=== PATIENT | male | born 1950 | race Caucasian/White ===

== ENCOUNTER → 2017-12-16 15:06 | Outpatient (BNVA) | payer MEDICARE, SELFPAY | PROVIDERS: Visit Provider Internal Medicine Cardiovascular Disease | DX: E78.2 Mixed hyperlipidemia (principal); I10 Essential (primary) hypertension; E66.09 Other obesity due to excess calories; R55 Syncope and collapse | CPT/HCPCS: 99204; 99215 ==

== ENCOUNTER 2017-12-24 01:29 | Outpatient (CLI) | payer MEDICARE, MEDICAID, SELFPAY ==
--- NOTE | 2017-12-24 10:08 | MERGE_ITS ---
*[facility]* *[facility]* [address] [place] [address] Date of study: 12/24/2017 Transthoracic Echocardiography M-mode, complete 2D, complete spectral Doppler, and color Doppler *STUDY CONCLUSIONS* Summary: 1. Left ventricle: The cavity size was normal. Systolic function was hyperdynamic. The estimated ejection fraction was 65-70%. Diastolic parameters were normal. There was no evidence of elevated ventricular filling pressure by Doppler parameters. 2. Mitral valve: There was mild to moderate regurgitation. 3. Right ventricle: The cavity size was normal. Wall thickness was normal. Systolic function was normal. 4. Atrial septum: No defect or patent foramen ovale was identified. 5. Pulmonary arteries: Pulmonary systolic pressure was in the range of 25mm Hg to 35mm Hg. 6. Inferior vena cava: The vessel was normal in size. The respirophasic diameter changes were in the normal range (greater than or equal to 50%), consistent with normal central venous pressure. *PATIENT PRESENTATION* Height: 160cm ((63in) ) S/D Pressure: 150 / 90 Weight: 107.5kg ((236.5lb) ) BSA: 2.24m^2 Test start time: 10:20 AM. Test stop time: 11:11 AM. ORDERING Nenita Wright REFERRING Nenita Wright PERFORMING Unknown PERFORMING [facility] MANAGER PROCESS EXCELLENCE Verenice Rowland *PROCEDURE DATA* Procedure information: This study was interpreted by [facility]. Pertinent images and digital data are archived for permanent storage and are available for subsequent review. No prior study was available for comparison. Study status: Routine. Transthoracic echocardiography. M-mode, complete 2D, complete spectral Doppler, and color Doppler. A Transthoracic Echocardiogram was performed. Scanning was performed from the parasternal, apical, subcostal, and suprasternal notch acoustic windows. Images were obtained using an [employer] sc 2000 cardiac ultrasound machine. Image quality was adequate. Study completion: The patient tolerated the procedure well. History: PMH: Near syncope *CARDIAC ANATOMY* Left ventricle: The cavity size was normal. Systolic function was hyperdynamic. The estimated ejection fraction was 65-70%. The tissue Doppler parameters were normal. Diastolic parameters were normal. There was no evidence of elevated ventricular filling pressure by Doppler parameters. Aortic valve: Trileaflet. Doppler: There was no stenosis. There was no regurgitation. VTI ratio of LVOT to aortic valve: 0.97. Valve area (VTI): 3.5cm^2. Indexed valve area (VTI): 1.6cm^2/m^2. Peak velocity ratio of LVOT to aortic valve: 0.94. Valve area (Vmax): 3.4cm^2. Indexed valve area (Vmax): 1.5cm^2/m^2. Mean velocity ratio of LVOT to aortic valve: 0.82. Valve area (Vmean): 2.9cm^2. Indexed valve area (Vmean): 1.3cm^2/m^2. Mean gradient (S): 3.4mm Hg. Peak gradient (S): 6.3mm Hg. Aorta: Aortic root: The aortic root was normal in size. Ascending aorta: The ascending aorta was normal in size. Mitral valve: Doppler: There was no evidence for stenosis. There was mild to moderate regurgitation. Valve area by pressure half-time: 3cm^2. Indexed valve area by pressure half-time: 1.3cm^2/m^2. Peak gradient (D): 2.8mm Hg. Left atrium: The atrium was normal in size. Atrial septum: No defect or patent foramen ovale was identified. Right ventricle: The cavity size was normal. Wall thickness was normal. Systolic function was normal. Pulmonic valve: Doppler: There was no evidence for stenosis. There was no significant regurgitation. Peak gradient (S): 3.3mm Hg. Tricuspid valve: Doppler: There was mild regurgitation. Pulmonary artery: Poorly visualized. Pulmonary systolic pressure was in the range of 25mm Hg to 35mm Hg. Right atrium: The atrium was normal in size. Pericardium: There was no pericardial effusion. Systemic veins: Inferior vena cava: The vessel was normal in size. The respirophasic diameter changes were in the normal range (greater than or equal to 50%), consistent with normal central venous pressure. Measurements Left ventricle Value Reference LV ID, ED, PLAX 4.7 cm 3.5 - 6.0 LV ID, ES, PLAX 3.2 cm 2.1 - 4.0 LV PW thickness, ED, PLAX 1.0 cm LV end-diastolic volume, 1-p A2C 87 ml LV ejection fraction, 1-p A2C 51 % LV end-diastolic volume, 1-p A4C 72 ml LV ejection fraction, 1-p A4C 59 % LV e', lateral 0.089 m/sec LV E/e', lateral 9 LV e', medial 0.07 m/sec LV E/e', medial 12 LV e', average 0.08 m/sec LV E/e', average 11 Ventricular septum Value Reference IVS thickness, ED, PLAX 1.0 cm LVOT Value Reference LVOT ID, A-P 2.1 cm LVOT area 3.6 cm^2 LVOT peak velocity, S 1.18 m/sec LVOT mean velocity, S 0.71 m/sec LVOT VTI, S 26.2 cm LVOT peak gradient, S 5.5 mm Hg LVOT mean gradient, S 2.5 mm Hg Stroke volume (SV), LVOT DP 94 ml Stroke index (SV/bsa), LVOT DP 42 ml/m^2 Aortic valve Value Reference Aortic valve peak velocity, S 1.3 m/sec Aortic valve mean velocity, S 0.87 m/sec Aortic valve VTI, S 27.0 cm Aortic mean gradient, S 3.4 mm Hg Aortic peak gradient, S 6.3 mm Hg VTI ratio, LVOT/AV 0.97 Aortic valve area, VTI 3.5 cm^2 Velocity ratio, peak, LVOT/AV 0.94 Aortic valve area, peak velocity 3.4 cm^2 Velocity ratio, mean, LVOT/AV 0.82 Aortic valve area, mean velocity 2.9 cm^2 Aortic valve area/bsa, mean velocity 1.3 cm^2/m^2 Aorta Value Reference Aortic root ID, ED 3.4 cm Ascending aorta ID, A-P, S 3.6 cm Left atrium Value Reference LA ID, A-P, ES 3.7 cm LA ID/bsa, A-P 1.7 cm/m^2 <=2.2 LA area, ES, A4C 22.8 cm^2 8.8 - 23.4 LA area, ES, A2C 18 cm^2 LA volume/bsa, S 31 ml/m^2 LA volume, ES, 2-p 60 ml LA volume/bsa, ES, 2-p 27 ml/m^2 LA/aortic root ratio 1.11 Mitral valve Value Reference Mitral E-wave peak velocity 0.84 m/sec Mitral A-wave peak velocity 0.85 m/sec Mitral deceleration time (H) 257 ms 150 - 230 Mitral pressure half-time 75 ms Mitral peak gradient, D 2.8 mm Hg Mitral E/A ratio, peak 1 Mitral valve area, PHT, DP 3 cm^2 Tricuspid valve Value Reference Tricuspid regurg peak velocity 2.5 m/sec Tricuspid peak RV-RA gradient 25.5 mm Hg Right atrium Value Reference RA area, ES, A4C (H) 19.7 cm^2 8.3 - 19.5 Pulmonic valve Value Reference Pulmonic peak gradient, S 3.3 mm Hg Legend: (L) and (H) neena values outside specified reference range. I have personally reviewed the images and have reviewed and edited the reported findings. Electronically signed by Cas Hein MD 12/24/2017 18:29
== END 2017-12-24 01:49 ==
PROVIDERS: PCP Family Medicine; Visit Provider Internal Medicine Cardiovascular Disease
DX: R55 Syncope and collapse (principal); I34.0 Nonrheumatic mitral (valve) insufficiency
CPT/HCPCS: 93270; 93306

== ENCOUNTER 2017-12-24 11:18 | Outpatient (CLI) | payer MEDICARE, MEDICAID, SELFPAY ==
--- NOTE | 2018-02-02 12:35 | CER_ITS ---
PREVENTICE REPORT DATE OF DICTATION February 02, 2018 STUDY INDICATION Syncope. REQUESTING PROVIDER Nenita Wright M.D. FINDINGS The patient was monitored for 30 days. COMMENTS The baseline rhythm was sinus rhythm. The average heart rate was 83 beats per minute. The maximal heart rate was 105 beats per minute. There was no bradycardia. There were no pauses greater than 3 seconds. There was no higher degree heart block. There was no atrial fibrillation. There was no ventricular tachycardia. There were 6 patient events. 2 events correlated with PVCs. All other events did not correlate with arrhythmias. FINAL INTERPRETATION No significant tachy or nereyda arrhythmias. Varun Lal M.D. MJ/jarrell T - 02/02/2018
== END 2017-12-24 11:38 ==
PROVIDERS: PCP Family Medicine; Visit Provider Internal Medicine Cardiovascular Disease
DX: R55 Syncope and collapse (principal)
CPT/HCPCS: 93270

== ENCOUNTER 2018-02-02 08:30 | Outpatient (CLI) | payer MEDICARE, MEDICAID, SELFPAY | END 2018-02-02 08:50 | PROVIDERS: PCP Family Medicine; Referring Provider Internal Medicine Cardiovascular Disease; Visit Provider Student in an Organized Health Care Education/Training Program | DX: R55 Syncope and collapse (principal) | CPT/HCPCS: 93228 ==

== ENCOUNTER 2018-08-17 14:36 | Outpatient (REF) | payer MEDICARE, SELFPAY ==
[2018-08-17 22:14] LABS: ALT 45 U/L (12-78); AST 23 U/L (15-37); Abs Immature Grans 0.03 k/cumm (0.0-0.09); Absolute Basophil Count 0.02 k/cumm (0.0-0.2); Absolute Eosinophil Count 0.15 k/cumm (0.0-0.7); Absolute Lymphocyte Count 2.36 k/cumm (1.2-3.4); Absolute Monocyte Count 0.95 k/cumm (0.11-0.7); Absolute Neutrophil Count 6.16 k/cumm (1.2-6.7); Alkaline Phosphatase 124 U/L (46-116); Anion Gap 11.8 mmol/L (3-11); BUN 26 mg/dL (7-18); Basophils % 0.2; Bilirubin, Total 0.3 mg/dL (0.2-1.0); CO2 25.2 mmol/L (21.0-32.0); CREATININE 1.67 mg/dL (0.70-1.30); Calcium 9.1 mg/dL (8.5-10.1); Chloride 99 mmol/L (98-107); Eosinophils % 1.6; Estimated GFR 41.24 (mL/min/1.73m2); Glucose 87 mg/dL (70-100); HCT 41.2 % (40.0-50.0); Immature Grans % 0.3; Lymphocytes % 24.4; Mean Corpuscular Hemoglobin 31.5 pg (27.0-33.0); Mean Corpuscular Volume 92.6 fL (80-95); Mean Platelet Volume 13.1 fL (8.0-11.0); Monocytes % 9.8; Neutrophils % 63.7; Platelet Count 186 x1000/uL (130-400); Potassium 4.4 mmol/L (3.5-5.1); RBC 4.45 m/cumm (4.50-6.00); RBC Distribution Width 14.5 % (11.8-14.1); Sodium 136 mmol/L (136-145); Total Protein 7.4 g/dL (6.4-8.2); White Blood Cell Count 9.67 k/cumm (4.4-10.8)
[2018-08-17 22:57] LABS: Hemoglobin A1C 6.5 % (4.5-6.2)
[2018-08-19 12:27] LABS: Lyme Ab w Rflx to Lyme Confirm Negative
[2018-08-19 20:02] LABS: Anaplasma phagocytophilum Negative (Negative); B. miyamotoi PCR Negative (Negative); Babesia divergens/MO-1 Negative (Negative); Babesia duncani Negative (Negative); Babesia microti Negative (Negative); Ehrlichia chaffeensis Negative (Negative); Ehrlichia ewingii/canis Negative (Negative); Ehrlichia muris eauclairensis Negative (Negative)
== END 2018-08-17 14:56 ==
LOC: NCHCN 14:36
PROVIDERS: PCP Family Medicine; Visit Provider Physician Assistant Medical
DX: E11.9 Type 2 diabetes mellitus without complications (principal); I95.9 Hypotension, unspecified
CPT/HCPCS: 80053; 83036; 85025; 86618; 87798

== ENCOUNTER 2018-12-13 12:43 | Outpatient (REF) | payer MEDICARE, SELFPAY ==
[2018-12-13 21:21] LABS: ALT 37 U/L (16-63); AST 20 U/L (15-37); Albumin 3.9 g/dL (3.4-5.0); Alkaline Phosphatase 110 U/L (46-116); Anion Gap 13.3 mmol/L (3-11); BUN 16 mg/dL (7-18); Bilirubin, Total 0.2 mg/dL (0.2-1.0); C-Reactive Protein 0.13 mg/dL (0.0-0.3); CO2 23.7 mmol/L (21.0-32.0); CREATININE 0.95 mg/dL (0.70-1.30); Calcium 8.8 mg/dL (8.5-10.1); Chloride 103 mmol/L (98-107); Glucose 100 mg/dL (70-100); Potassium 4.3 mmol/L (3.5-5.1); Sodium 140 mmol/L (136-145); Total Protein 7.7 g/dL (6.4-8.2)
[2018-12-13 21:31] LABS: HCT 43.9 % (40.0-50.0); HGB 14.6 g/dL (13.5-17.5); Mean Corp. HGB Concentration 33.3 g/dL (32.0-36.0); Mean Corpuscular Hemoglobin 31.2 pg (27.0-33.0); Mean Corpuscular Volume 93.8 fL (80-95); Mean Platelet Volume 12.3 fL (8.0-11.0); Platelet Count 212 x1000/uL (130-400); RBC 4.68 m/cumm (4.50-6.00); RBC Distribution Width 14.4 % (11.8-14.1); White Blood Cell Count 8.37 k/cumm (4.4-10.8)
[2018-12-13 22:04] LABS: ESR 22 mm/hr (1-20)
== END 2018-12-13 13:03 ==
LOC: NCHCN 12:43
PROVIDERS: PCP Family Medicine; Visit Provider Family Medicine
DX: E11.9 Type 2 diabetes mellitus without complications (principal); M06.9 Rheumatoid arthritis, unspecified; I10 Essential (primary) hypertension; E78.5 Hyperlipidemia, unspecified
CPT/HCPCS: 80053; 85027; 85652; 83036; 86140

== ENCOUNTER 2018-12-23 01:41 | Outpatient (CLI) | payer MEDICARE, SELFPAY ==
--- NOTE | 2018-12-23 14:03 | DI.CTLCSR_ITS ---
EXAM: CT CHEST LUNG CANCER SCREEN CT CHEST LUNG CANCER SCREEN CLINICAL HISTORY: . PERSONAL H/O SMOKING, Z87.891 TECHNIQUE: Low-dose noncontrast COMPARISON: No exams were available for comparison FINDINGS: Tracheobronchial tree: Patent where visualized. Mediastinum and Bre: No dominant adenopathy or fluid collection. Pulmonary parenchyma: No consolidation or dominant measurable mass. . Mild to moderate emphysematous changes at the upper lobes. Lung Nodules: None. Pleura: No effusion or pneumothorax. Heart/Aorta: Thoracic aorta non-dilated.Mild aortic calcifications. The heart is not dilated. . Alem nary artery calcifications. Upper abdomen: Unremarkable. IMPRESSION: Normal low dose CT lung screening Lung-RADS Category: 1 - Negative (See reference table below.) Lung-RADS 1.0 CATEGORIES: Category 0 - Prior chest CT exam(s) being located for comparison. Category 1 - Annual screening in 12 months. No nodules or definitely benign nodules. Category 2 - Annual screening in 12 months. Benign appearance. Nodules with low likelihood of becomin g active cancer. Category 3 - 6-month follow-up. Probably benign. Short-term follow-up suggested. Nodules with low lik elihood of becoming active cancer. Category 4A - 3-month follow-up and CT/PET if >8 mm in size. Suspicious finding. Findings which requi re additional testing. Category 4B - Findings which require additional testing and tissue sampling. Suspicious finding. C Added to Any of the Above - History of prior lung cancer screening. S Added to Any of the Above - Significant unexpected other finding. DATA REPOSITORY: All CT scans at this facility are submitted to the National Radiology Data Registry (NRDR) Dose Index Registry (DIR) with the [employer] (ACR). RADIATION OPTIMIZATION: All CT scans at this facility use at least one of these dose optimization te chniques: automated exposure control; mA and/or kV adjustment per patient size (includes targeted exa ms where dose is matched to clinical indication); or iterative reconstruction.
== END 2018-12-23 02:01 ==
PROVIDERS: PCP Family Medicine; Visit Provider Family Medicine
DX: Z12.2 Encounter for screening for malignant neoplasm of respiratory organs (principal); Z87.891 Personal history of nicotine dependence; J43.9 Emphysema, unspecified; I70.0 Atherosclerosis of aorta; I25.10 Atherosclerotic heart disease of native coronary artery without angina pectoris
CPT/HCPCS: G0297

== ENCOUNTER 2019-06-23 13:50 | Outpatient (REF) | payer MEDICARE, SELFPAY ==
[2019-06-23 19:27] LABS: Abs Immature Grans 0.02 k/cumm (0.0-0.09); Absolute Basophil Count 0.01 k/cumm (0.0-0.2); Absolute Eosinophil Count 0.22 k/cumm (0.0-0.7); Absolute Lymphocyte Count 2.65 k/cumm (1.2-3.4); Absolute Monocyte Count 0.81 k/cumm (0.11-0.7); Basophils % 0.1; Eosinophils % 2.3; HCT 40.5 % (40.0-50.0); HGB 13.2 g/dL (13.5-17.5); Immature Grans % 0.2 %; Lymphocytes % 28.2; Mean Corp. HGB Concentration 32.6 g/dL (32.0-36.0); Mean Corpuscular Hemoglobin 30.8 pg (27.0-33.0); Mean Corpuscular Volume 94.4 fL (80-95); Mean Platelet Volume 12.5 fL (8.0-11.0); Monocytes % 8.6; Neutrophils % 60.6; Platelet Count 183 x1000/uL (130-400); RBC 4.29 m/cumm (4.50-6.00); White Blood Cell Count 9.41 k/cumm (4.4-10.8)
[2019-06-23 20:05] LABS: ESR 27 mm/hr (1-20)
[2019-06-23 20:19] LABS: ALT 46 U/L (16-63); AST 34 U/L (15-37); Alkaline Phosphatase 147 U/L (46-116); Anion Gap 8.8 mmol/L (3-11); BUN 22 mg/dL (7-18); Bilirubin, Total 0.3 mg/dL (0.2-1.0); CO2 30.2 mmol/L (21.0-32.0); Calcium 9.3 mg/dL (8.5-10.1); Chloride 99 mmol/L (98-107); Glucose 122 mg/dL (74-106); Sodium 138 mmol/L (136-145); Total Protein 8.1 g/dL (6.4-8.2)
[2019-06-23 21:20] LABS: C-Reactive Protein 1.05 mg/dL (0.0-0.3)
[2019-06-24 12:37] LABS: Hemoglobin A1C 6.3 % (3.8-5.6)
[2019-06-24 12:38] LABS: Calculated LDL 103 mg/dL (<100); Cholesterol 175 mg/dL (<200); HDL Cholesterol 40 mg/dL (40-60); Triglyceride 160 mg/dL (<150)
[2019-06-24 21:32] LABS: Rheumatoid Factor <8.6 IU/mL (<12.0)
[2019-06-26 10:11] LABS: Cyclic Citrullinated Peptide <2.5 U/mL (<5.0)
[2019-06-26 11:06] LABS: HBs Antibody, Quant <3.1 mIU/mL (See Note); Hepatitis B Surface Ab Negative (See Note)
[2019-06-26 11:10] LABS: Hepatitis B Surface Ag Negative (Negative)
[2019-06-26 11:56] LABS: HIV-1/2 Ag & Ab Screen Negative (Negative)
[2019-06-26 11:57] LABS: Hepatitis C Ab w Rflx HCV PCR Negative (Negative)
[2019-06-26 12:18] LABS: Hep B Core Antibody Negative (Negative)
[2019-06-26 12:44] LABS: ANA Interpretation Negative (Negative)
[2019-06-27 15:36] LABS: HLA-B27 Result Negative
[2019-06-28 12:17] LABS: RNP Ab, IgG 6.9 Units (<20.0); SS-A Antibody 1.4 Units (<20.0); SS-B (La) Ab, IgG 2.7 Units (<20.0); Sm (Smith) Ab, IgG 10.7 Units (<20.0)
== END 2019-06-23 14:10 ==
LOC: NCHCN 13:50
PROVIDERS: Internal Medicine; PCP Family Medicine; Visit Provider Family Medicine
DX: H20.9 Unspecified iridocyclitis (principal); M06.9 Rheumatoid arthritis, unspecified; E78.5 Hyperlipidemia, unspecified; R73.09 Other abnormal glucose; I10 Essential (primary) hypertension; Z79.899 Other long term (current) drug therapy; Z51.81 Encounter for therapeutic drug level monitoring; Z52.008 Unspecified donor, other blood
CPT/HCPCS: 80053; 80061; 85652; 86200; 86704; 86706; 86803; 86812; 87340; 87389; 83036; 85025; 86038; 86140; 86235; 86431

== ENCOUNTER 2020-01-16 17:50 | Outpatient (REF) | payer MEDICARE, SELFPAY ==
[2020-01-16 19:47] LABS: HCT 43.2 % (40.0-50.0); MCH 30.4 pg (27.0-33.0); MCHC 32.4 % (32.0-36.0); MCV 93.9 fL (80-95); MPV 12.4 fL (8.0-11.0); Platelet Count 224 10^3/uL (130-400); RDW 13.6 % (11.8-14.1); RDW-SD 47.4 fL; WBC 9.89 10^3/uL (4.4-10.8)
[2020-01-16 19:57] LABS: ALT 44 U/L (16-63); AST 25 U/L (15-37); Albumin 3.9 g/dL (3.4-5.0); Alkaline Phosphatase 117 U/L (46-116); Anion Gap 11.1 mmol/L (3-11); BUN 22 mg/dL (7-18); Bilirubin, Total 0.3 mg/dL (0.2-1.0); C-Reactive Protein 0.93 mg/dL (0.0-0.3); CO2 25.9 mmol/L (21.0-32.0); CREATININE 1.18 mg/dL (0.70-1.30); Calcium 9.3 mg/dL (8.5-10.1); Chloride 101 mmol/L (98-107); Glucose 117 mg/dL (74-106); Potassium 3.8 mmol/L (3.5-5.1); Sodium 138 mmol/L (136-145); Total Protein 7.8 g/dL (6.4-8.2)
[2020-01-16 20:36] LABS: ESR 24 mm/hr (1-20)
[2020-01-16 20:46] LABS: Hemoglobin A1C 6.3 % (<5.7)
== END 2020-01-16 18:10 ==
LOC: NCHCN 17:50
PROVIDERS: PCP Family Medicine; Visit Provider Family Medicine
DX: E11.9 Type 2 diabetes mellitus without complications (principal); M06.9 Rheumatoid arthritis, unspecified
CPT/HCPCS: 80053; 85027; 85652; 83036; 86140

== ENCOUNTER 2020-05-27 02:03 | Outpatient (CLI) | payer OTHER, SELFPAY ==
--- NOTE | 2020-05-27 09:15 | DI.NM_ITS ---
APPROVED REPORT Exam: Exercise Treadmill Patient Location: Out-Patient Room/Bed: Stress Nurse: Lyssa Maya RN Ordering Provider:MARJORIE SÁNCHEZ, Contact Number: [phone] BMI: 41.19 Baseline Rhythm: Sinus Rhythm Indications: Intermittent chest pain Medical History Medical History: Hypertension, hyperlipidemia, obesity, fibromyalgia, rheumatoid arthritis Cardiac Medications: Aspirin, hydrochlorothiazide, simvastatin, pantoprazole Allergies: NKA Cardiac Risk Factors: Hypertension, hyperlipidemia, obesity, smoker (former), family hx Previous Cardiac Procedures: none Pretest Chest Pain Characteristics: None Exercise History: Sedentary Physical Disabilities: None Lung Sounds: Clear to auscultation Heart Sounds: Regular Stress Test Details Test: Exercise stress testing was performed using a modified Enoch protocol. Nuclear Acquisition: Rest Tc-99m/Stress Tc-99m 1 day Rest Isotope: Tc-99m Sestamibi. Dose: 12.2 Date: 05/27/2020 Injection Time: 0915 Stress Isotope: Tc-99m Sestamibi. Dose: 39.0 Date: 05/27/2020 Injection Time: 1045 HR Resting HR Supine: 86 bpm Max Heart Rate (APMHR): 151.478897 bpm Resting HR Standin bpm Target HR (85% APMHR): 128.294378 bpm Max HR Achieved: 138 bpm % of APMHR: 91.39 Recovery HR: 98 bpm HR response to stress: Normal HR response to stress BP Resting BP Supine: 182/96 mmHg Resting BP Standin/88 mmHg Max BP: 242/98 mmHg Recovery BP: 166/86 mmHg BP response to stress: Abnormal hypertensive response to stress. ECG Resting ECG: Sinus Rhythm Ectopy: None Stress ECG: Sinus Tachycardia ST Change: No significant ST segment changes noted Arrhythmia: None Recovery ECG: Sinus Rhythm Recovery ST Change: No significant ST segment changes noted Recovery Arrhythmia: None Clinical Reason for Termination: Fatigue, Dyspnea Stress Symptoms: General Fatigue, Dyspnea Exercise duration: 4 min18 sec Exercise capacity: 4.64 METs Rate Pressure Product: [id number] Stress ECG Conclusion 1. The patient exercised for 4 minutes (5 METS). The patient had exaggerated blood pressure response to exercise but normal heart rate response. 2. The patient no symptom suggestive of ischemia. 3. There was no evidence of ischemia on the ECG portion of the exam. Stress Test Summary STAGE Time (mins) Speed (mph) Grade (%) HR BP SYMPTOMS METS Supine 86 182/96 Standing 89 174/88 1 3 1.7 10 121 4.6 1 min recovery 122 3 min recovery 105 242/98 6 min recovery 103 200/86 9 min recovery 98 166/86 Modified Enoch to maintain 1.7 speed and 10% grade. Gradually decreased speed to 1.2 and grade to 1.0 % until minute 4:18 of exercise when patient stopped test. MPI Conclusion The ejection fraction was 64% with stress. There were no wall motion abnormalities. There is no evidence of ischemia on the imaging portion of the exam. This represents a normal SPECT stress test. Radiologist Interpretation Radiologist Interpretation by: Armaan Acosta MD Interpretation Date/Time: 05/28/2020 16:18:06
== END 2020-05-27 02:23 ==
PROVIDERS: PCP Family Medicine; Visit Provider Family Medicine
DX: R07.9 Chest pain, unspecified (principal); I10 Essential (primary) hypertension; E78.5 Hyperlipidemia, unspecified; E66.9 Obesity, unspecified; M79.7 Fibromyalgia; Z87.891 Personal history of nicotine dependence; Z82.49 Family history of ischemic heart disease and other diseases of the circulatory system
CPT/HCPCS: 78452; 93016; 93018; 93017

== ENCOUNTER 2020-07-10 10:58 | Emergency (ER) | payer OTHER, SELFPAY ==
[2020-07-10] VITALS (43 sets, daily range): BP systolic 95–136; BP diastolic 55–78; PULSE 86–118; RESP 15–28; TEMP 37.1; O2SAT 92–99
--- NOTE | 2020-07-10 11:00 | RT.EKG_ITS ---
APPROVED REPORT Exam: Resting ECG Reason for Exam: Fever,SOB, GI bleed Patient Location: E HR:108 bpm ECG Measurements Heart Rate 108 AXIS AZ 177 P 48 QRSd 110 QRS 0 QT 329 T 53 QTc 441 Conclusion Sinus tachycardia.c Narrow qrs, no st elevation
--- NOTE | 2020-07-10 11:04 | ED.GENADUL_ITS ---
Discharge Plan Disposition Patient Disposition: [facility] Condition: Stable Discharge Details Clinical Impression: Rectal bleeding, Cholecystitis Primary Care Provider: Lise Hearn V ED Provider: Karina Radford Home Meds and New Rx's Prescriptions: No Action citalopram [Celexa] 40 MG tablet 80 mg PO DAILY RF: 0 amitriptyline 150 MG tablet 300 mg PO HS RF: 0 simvastatin 80 MG tablet 40 mg PO HS RF: 0 aspirin [Aspir-81] 81 MG tablet,delayed release (DR/EC) 81 mg PO DAILY AM RF: 0 pantoprazole 40 MG tablet,delayed release (DR/EC) 40 mg PO HS RF: 0 hydrochlorothiazide 25 MG tablet 25 mg PO DAILY AM RF: 0 pregabalin [Lyrica] 100 MG capsule 125 mg PO TID RF: 0 tamsulosin 0.4 mg capsule 0.4 mg PO HS RF: 0 triamcinolone acetonide 0.1 % ointment 1 applic TOPICAL BID RF: 0 lisinopril 10 mg tablet 10 mg PO DAILY RF: 0 Discharge Data Discharge Date/Time-TO BE ENTERED AT DEPARTURE: 07/10/20 15:31 Medical Decision Making 70-year-old male presents to the ER with chief complaint of diarrhea x3 days with bright red blood per rectum, fever and shortness of breath. He denies any abdominal pain. He does report some vomiting last couple days none today. [place] es any hematic emesis. He reports bright red rectal bleeding with diarrhea. He denies any dizziness or lightheadedness at this time. He was seen by his PCP this morning and was sent to us for further evaluation. Upon initial exam he is tachycardic at 118, temperature 37.1 satting 99% on room air. He has a past medical history of hypertension, hyperlipidemia, obesity and rheumatoid arthritis. At this time CBC, CMP, PT/INR, type and screen ordered. Guaiac positive for grossly bloody stool. Chest x-ray and CT abdomen pelvis IV contrast only ordered. CBC shows white blood cell count of 16.18 hemoglobin 11.5, hematocrit 35 magnesium 1.4 sodium 137, potassium 4.2, chloride 102 BUN 35 creatinine 1.3 EGFR 34.73. Glucose 149. Alk phos is 135 initial troponin is less than 0.05 urinalysis is negative for leukocytes or nitrites. ABO Rh is A+ EXAM: XR CHEST 2V PA LATERAL CLINICAL HISTORY: SOB TECHNIQUE: 2D digital imaging was performed. COMPARISON: No exams were available for comparison FINDINGS: MEDIASTINUM: Normal. HEART: Normal. PULMONARY VASCULATURE: Normal. LUNGS: Clear. PLEURAL SPACE: No pleural effusion or pneumothorax. BONE:Within normal limits for the patient's age. OTHER FINDINGS:Normal. IMPRESSION: No acute pulmonary findings. 1310: Spoke with Dr. Acosta regarding CT results he reports that there is positive air within the gallbladder with some inflammatory changes surrounding the gallbladder and in the duodenum she is a concern for fistula versus carcinoma. 1310: Spoke with general surgeon on-call Dr. Sher discussed patient case in detail she recommends transfer to tertiary facility if there is any concern of carcinoma. Will have radiology push the images to [facility]. EXAM: CT ABDOMEN PELVIS W CLINICAL HISTORY: GI bleed TECHNIQUE: Imaging Protocol: Axial computed tomography images with coronal and sagittal reformatted images were created and reviewed CONTRAST MATERIAL: Intravenous: Omnipaque 350 Contrast volume:100 mL Oral: No COMPARISON: CT CT CHEST LUNG CANCER SCREEN from 12/23/2018 FINDINGS: ABDOMEN: Lung Bases: Normal where visualized. There is a small hiatal hernia. Liver: There is diffuse decreased attenuation of the liver consistent with fatty infiltration. No measurable mass. Portal, Superior Mesenteric, and Splenic Veins: Unremarkable. Gallbladder and Biliary Tract: There is diffuse thickening of the wall of the gallbladder and stranding around the gallbladder. There is no fat plane between the gallbladder or the adjacent liver. There is also air seen within the gallbladder. The contents within the gallbladder are isodense to muscle. There is no biliary ductal dilatation the adjacent duodenum shows thin bowel wall thickening and stranding in the adjacent soft tissues. Pancreas: Normal density, no abnormal calcifications or inflammatory process. Spleen: Normal. Adrenals: There is a 1.3 cm nodule in the right adrenal gland. The left adrenal gland is unremarkable. Kidneys: Normal size, contour and axis. No radiodense stones or obstructive uropathy. There are bilateral renal cysts. There is a 7 x 4.9 cm cyst in the upper pole of the left kidney. The cyst has thin septations some of which are calcified. Abdominal Aorta: Abdominal portion non-dilated. Marked atherosclerosis. Bowel: No obstruction or bowel wall thickening. Appendix is unremarkable. There is diverticulosis of the sigmoid colon but no evidence of acute diverticulitis. Please see the above section on the gallbladder and biliary tract. Peritoneal Cavity: No ascites, collection or mesenteric inflammatory response. No free air. Lymph Nodes: Within normal limits. Bones: Degenerative changes. Soft Tissues: There is a 7.1 x 4.9 cm fat attenuation mass in the left tensor fascia capri muscle. It is incompletely imaged on this examination. The visualized portions would be consistent with a lipoma. PELVIS: Bladder: Symmetric distention, no gross wall thickening. Reproductive Organs: There is an enlarged prostate gland. Lymph Nodes: Within normal limits. Bones: Within normal limits for the patient's age. IMPRESSION: 1. Marked gallbladder wall thickening with adjacent soft tissue stranding. Intraluminal air is noted. The findings are concerning for emphysematous cholecystitis. Neoplasm is considered less likely. Surgery consult was recommended. 2. Bowel wall thickening involving the adjacent duodenum suspicious for duodenitis. This is likely secondary to the adjacent gallbladder inflammation. 3. Results of this exam have been verbally communicated with provider. 1322:[facility] called, they are full for Med surg and Step down level. Will call [facility]. 1322: [facility] transfer center called, awaiting call back from General surgery. Covid swab and repeat CBC ordered. WBC 13.68 RBC 3.39 hemoglobin has dropped to 10.3 and 31.2. 1002: Spoke with Dr. Renee who agrees to evaluate patient in the ED, Dr. Jackson in ED also discussed patient case with and verbalizes understanding. Will arrange transport to [facility]. Discussed plan of care to transfer patient to [facility] with patient who verbalizes understanding. HPI General Mode of arrival: EMS . Date/Time Provider Initiated Documentation: 07/10/20 11:02 . Limitations to Documentation: no limitations . Information obtained by: patient, EMS and RN notes reviewed . HPI Narrative: 70-year-old male presents to the ER with chief complaint of diarrhea x3 days with bright red blood per rectum, fever and shortness of breath. He denies any abdominal pain. He does report some vomiting last couple days none today. Denies any hematic emesis. He reports bright red rectal bleeding with diarrhea. He denies any dizziness or lightheadedness at this time. He was seen by his PCP this morning and was sent to us for further evaluation. Upon initial exam he is tachycardic at 118, temperature 37.1 satting 99% on room air. He has a past medical history of hypertension, hyperlipidemia, obesity and rheumatoid arthritis. Related Data Home Medications Medication Instructions Recorded Confirmed amitriptyline 300 mg PO HS 11/09/13 07/10/20 aspirin [Aspir 81] 81 mg PO DAILY AM 11/09/13 07/10/20 citalopram [Celexa] 80 mg PO DAILY 11/09/13 07/10/20 hydrochlorothiazide 25 mg PO DAILY AM 11/09/13 07/10/20 pantoprazole 40 mg PO HS 11/09/13 07/10/20 pregabalin [Lyrica] 125 mg PO TID 11/09/13 07/10/20 simvastatin 40 mg PO HS 11/09/13 07/10/20 lisinopril 10 mg PO DAILY 07/10/20 07/10/20 tamsulosin 0.4 mg PO HS 07/10/20 07/10/20 triamcinolone acetonide 1 applic TOPICAL BID 07/10/20 07/10/20 Allergies Allergy/AdvReac Type Severity Reaction Status Date / Time No Known Allergies Allergy Unverified 07/10/20 11:02 General Stated Complaint: GI Bleed ALE: 3 Review of Systems Narrative: Constitutional: Negative for weight loss, alert and oriented, well groomed, obese body habitus, appears comfortable. HEENT: Denies trauma, headaches, blurry vision, nasal discharge, sore throat, trouble swallowing. Chest: Denies chest pain, palpitations, irregular rhythm, Respiratory: Denies cough, hemoptysis. Positive shortness of breath. Had second Covid vaccination a week ago. GI: Denies abdominal pain, constipation. Positive nausea vomiting diarrhea. : Denies dysuria, hematuria, flank pain, positive hematochezia Neuro: Denies dizziness, blurry vision, weakness, syncope, headache or facial numbness. Hematologic: Denies easy bruising, intolerance to heat or cold, hair loss. [facility] Medical History (Updated 07/10/20 @ 14:10 by Karina Radford) Essential hypertension Hyperlipidemia, mixed Near syncope Obesity due to excess calories Rheumatoid arthritis Social History Smoking/Tobacco Use Status: Former Tobacco Use Quit Date: 03/08/12 Pack-years: 40 Smoking risk assessment performed?: Yes Alcohol Intake: never Drug use: Never Substance use type: does not use Household members: none Do you feel safe at home: Yes Exam Narrative Exam Narrative: Constitutional: Alert and oriented x3. Appears stated age. Normal body habitus. Head: Normocephalic, no trauma. Eyes: Pupils PERRLA, Red reflex noted, EOM's intact. Eyelids symmetrical without lesions, discharge, or swelling. ENT: Bilateral TM's WNL, External ear normal to inspection, no mastoid TTP, swelling, or erythema, Nasal turbinates WNL, no nasal discharge. Normal dentition, Posterior pharynx WNL, no exudate. Chest: RRR, Normal S1, S2, distal pulses intact. Resp: Lungs clear to auscultation bilaterally, no wheezes, rales, or rhonchi. Musculoskeletal: Normal gait, 5/5 strength to all four extremities. Skin: No suspicious rashes or lesions. Capillary refill less than 2 sec. Neurologic: Cranial nerves II-XII intact. Alert and oriented x 3. DTR's intact. Hematologic/Lymphatic: No ecchymosis, no lymphadenopathy. Course Vital Signs Vital signs: Vital Signs Temperature 37.1 C 07/10/20 10:58 Pulse 118 H 07/10/20 10:58 Respiratory Rate 22 07/10/20 10:58 Blood Pressure 125/71 07/10/20 10:58 Pulse Oximetry 99 07/10/20 10:58 Temperature 37.1 C 07/10/20 10:58 Temperature Source Skin 07/10/20 10:58 Pulse 118 H 07/10/20 10:58 Respiratory Rate 22 07/10/20 10:58 Respiratory Effort Non-Labored 07/10/20 11:03 Blood Pressure 125/71 07/10/20 10:58 Pulse Oximetry 99 07/10/20 10:58 Oxygen Delivery Method Room Air 07/10/20 10:58 Oxygen Flow Rate 0 07/10/20 10:58 Pain Level 0 07/10/20 10:58 Procedures Stool Hemoccult Procedural Steps Taken: stool placed in appropriate test area, developer placed on stool and control areas and controls appropriately positive and negative Hemoccult result: positive
--- NOTE | 2020-07-10 11:15 | DI.RAD_ITS ---
Exam(s) XR CHEST 2V PA LATERAL EXAM: XR CHEST 2V PA LATERAL CLINICAL HISTORY: SOB TECHNIQUE: 2D digital imaging was performed. COMPARISON: No exams were available for comparison FINDINGS: MEDIASTINUM: Normal. HEART: Normal. PULMONARY VASCULATURE: Normal. LUNGS: Clear. PLEURAL SPACE: No pleural effusion or pneumothorax. BONE:Within normal limits for the patient's age. OTHER FINDINGS:Normal. IMPRESSION: No acute pulmonary findings. DATA REPOSITORY: RADIATION DOSE DELIVERED:
--- NOTE | 2020-07-10 11:15 | DI.CT_ITS ---
Exam(s) CT ABDOMEN PELVIS W EXAM: CT ABDOMEN PELVIS W CLINICAL HISTORY: GI bleed TECHNIQUE: Imaging Protocol: Axial computed tomography images with coronal and sagittal reformatted images were created and reviewed CONTRAST MATERIAL: Intravenous: Omnipaque 350 Contrast volume:100 mL Oral: No COMPARISON: CT CT CHEST LUNG CANCER SCREEN from 12/23/2018 FINDINGS: ABDOMEN: Lung Bases: Normal where visualized. There is a small hiatal hernia. Liver: There is diffuse decreased attenuation of the liver consistent with fatty infiltration. No me asurable mass. Portal, Superior Mesenteric, and Splenic Veins: Unremarkable. Gallbladder and Biliary Tract: There is diffuse thickening of the wall of the gallbladder and strandi ng around the gallbladder. There is no fat plane between the gallbladder or the adjacent liver. There is also air seen within the gallbladder. The contents within the gallbladder are isodense to muscle. There is no biliary ductal dilatation the adjacent duodenum shows thin bowel wall thickening and str anding in the adjacent soft tissues. Pancreas: Normal density, no abnormal calcifications or inflammatory process. Spleen: Normal. Adrenals: There is a 1.3 cm nodule in the right adrenal gland. The left adrenal gland is unremarkable . Kidneys: Normal size, contour and axis. No radiodense stones or obstructive uropathy. There are bilat eral renal cysts. There is a 7 x 4.9 cm cyst in the upper pole of the left kidney. The cyst has thin septations some of which are calcified. Abdominal Aorta: Abdominal portion non-dilated. Marked atherosclerosis. Bowel: No obstruction or bowel wall thickening. Appendix is unremarkable. There is diverticulosis of the sigmoid colon but no evidence of acute diverticulitis. Please see the above section on the gallbl adder and biliary tract. Peritoneal Cavity: No ascites, collection or mesenteric inflammatory response. No free air. Lymph Nodes: Within normal limits. Bones: Degenerative changes. Soft Tissues: There is a 7.1 x 4.9 cm fat attenuation mass in the left tensor fascia capri muscle. It is incompletely imaged on this examination. The visualized portions would be consistent with a lipoma . PELVIS: Bladder: Symmetric distention, no gross wall thickening. Reproductive Organs: There is an enlarged prostate gland. Lymph Nodes: Within normal limits. Bones: Within normal limits for the patient's age. IMPRESSION: 1. Marked gallbladder wall thickening with adjacent soft tissue stranding. Intraluminal air is noted. The findings are concerning for emphysematous cholecystitis. Neoplasm is considered less likely. Qian dickson consult was recommended. 2. Bowel wall thickening involving the adjacent duodenum suspicious for duodenitis. This is likely se condary to the adjacent gallbladder inflammation. 3. Results of this exam have been verbally communicated with provider. RADIATION DOSE DELIVERED: 1,344.28mGy.cm Total DLP DATA REPOSITORY: All CT scans at this facility are submitted to the National Radiology Data Registry (NRDR) Dose Index Registry (DIR) with the [employer] (ACR). RADIATION OPTIMIZATION: All CT scans at this facility use at least one of these dose optimization te chniques: automated exposure control; mA and/or kV adjustment per patient size (includes targeted exa ms where dose is matched to clinical indication); or iterative reconstruction.
[2020-07-10 11:24] LABS: Abs Immature Grans 0.14 10^3/uL (0.0-0.06); Absolute Basophil Count 0.05 10^3/uL (0.0-0.2); Absolute Eosinophil Count 0.08 10^3/uL (0.0-0.7); Absolute Lymphocyte Count 1.99 10^3/uL (1.2-3.4); Absolute Monocyte Count 1.46 10^3/uL (0.1-0.8); Absolute Neutrophil Count 12.46 10^3/uL (1.2-6.7); Basophils % 0.3; Eosinophils % 0.5; HCT 35.7 % (40.0-50.0); HGB 11.5 g/dL (13.5-17.5); Immature Grans % 0.9; Lymphocytes % 12.3; MCH 30.2 pg (27.0-33.0); MCHC 32.2 % (32.0-36.0); MCV 93.7 fL (80-95); MPV 11.7 fL (8.0-11.0); Nucleated RBC 0 %; Platelet Count 268 10^3/uL (130-400); RBC 3.81 10^6/uL (4.36-5.78); RDW 14.6 % (11.8-14.1); RDW-SD 49.9 fL; WBC 16.18 10^3/uL (4.4-10.8)
[2020-07-10] MEDS: Ondansetron 4 MG/2 ML VIAL IVP (11:36)
[2020-07-10] MEDS: Normal Saline 1,000 ML 325 ML IV (11:36)
[2020-07-10] MEDS: Pantoprazole 40 MG VIAL 80 MG IVP (11:36)
[2020-07-10 11:45] LABS: INR 1.1 (0.9-1.1); Prothrombin Time 10.7 sec (9.3-11.0)
[2020-07-10 11:51] LABS: ALT 38 U/L (16-63); AST 18 U/L (15-37); Albumin 3.2 g/dL (3.4-5.0); Alkaline Phosphatase 135 U/L (46-116); Anion Gap 10.5 mmol/L (3-11); BUN 35 mg/dL (7-18); Bilirubin, Total 0.2 mg/dL (0.2-1.0); CO2 24.5 mmol/L (21.0-32.0); CREATININE 1.3 mg/dL (0.70-1.30); Calcium 9.8 mg/dL (8.5-10.1); Chloride 102 mmol/L (98-107); Estimated GFR 54.73 (mL/min/1.73m2); Glucose 149 mg/dL (74-106); Magnesium 1.4 mg/dL (1.8-2.4); Potassium 4.2 mmol/L (3.5-5.1); Sodium 137 mmol/L (136-145); Total Protein 8.2 g/dL (6.4-8.2); Troponin I < 0.05 ng/mL (<0.06)
[2020-07-10] MEDS: Omnipaque 350 MG/ML 100 ML BTL IJ (12:15)
[2020-07-10] MEDS: Normal Saline - Diluent 50 ML VIAL IV (12:22)
[2020-07-10 12:32] LABS: Bilirubin Negative (Negative); Blood Negative (Negative); Clarity Clear (Clear); Glucose Negative (Negative); Ketones Negative (Negative); Leukocyte Esterase Negative (Negative); Nitrite Negative (Negative); Specific Gravity 1.025 (1.005-1.025); Urobilinogen 0.2 EU/dL (Up TO 0.2); pH 6.5 (5-8)
[2020-07-10] MEDS: MAGNESIUM SULFATE 1 GM/100 ML BAG IVPB (12:56)
[2020-07-10 13:28] LABS: Lipase 126 U/L (73-393)
[2020-07-10 14:02] LABS: HCT 31.2 % (40.0-50.0); HGB 10.3 g/dL (13.5-17.5); MCH 30.4 pg (27.0-33.0); MPV 11.8 fL (8.0-11.0); Platelet Count 242 10^3/uL (130-400); RBC 3.39 10^6/uL (4.36-5.78); RDW 14.7 % (11.8-14.1); RDW-SD 49.6 fL; WBC 13.68 10^3/uL (4.4-10.8)
[2020-07-10] MEDS: Normal Saline 250 ML IV (14:41)
[2020-07-10 14:48] LABS: COVID-19 PCR Negative (Negative)
[2020-07-10 15:03] LABS: Troponin I < 0.05 ng/mL (<0.06)
== END 2020-07-10 15:31 ==
PROVIDERS: Emergency Provider Registered Nurse Emergency; PCP Family Medicine
DX: K81.0 Acute cholecystitis (principal); K62.5 Hemorrhage of anus and rectum; R50.9 Fever, unspecified; Z03.818 Encounter for observation for suspected exposure to other biological agents ruled out
CPT/HCPCS: 36415; 80053; 83690; 85027; 86850; 86900; 86901; 87635; 93005; 96361; 96365; 96366; 96375; 99285; 71046; 74177; 81003; 83735; 84484; 85025; 85610; 93010; J2405; J3475; J3490

== ENCOUNTER 2020-08-30 13:21 | Outpatient (REF) | payer OTHER, SELFPAY ==
--- OUTSIDE RECORDS SUMMARY | 2020-08-30 13:26 | XMS_ITS ---
:1950 Author Care Team Providers Name Role Phone [facility] Primary Care Provider [phone] MARJORIE SÁNCHEZ MD Primary Care Provider [phone] CHRISTELLE LANDRY MD Referring Provider [phone] [facility] Primary Care Provider [phone] Allergies Code Code System Name Reaction Severity Status Onset NKDA ? Medications Name Status Start Date Stop Date ? ? amitriptyline 150 mg tablet Active ? Not available Take 1 tablet every day by oral route at bedtime. aspirin 81 mg tablet,delayed release Active ? Not available Take 1 tablet every day by oral route. Celexa 40 mg tablet Active ? Not availabl e Take 1 tablet every day by oral route. hydrochlorothiazide 25 mg tablet Active ? Not available Take 1 tablet every day by oral route. Lyrica Active ? Not available 125mg TID melatonin 10 mg tablet Active ? Not avail able Take 1 tablet every day by oral route at bedtime for 90 days. melatonin 10 mg-lemon balm leaf extract 1 mg tablet Active ? Not available TAKE 1 TABLET BY MOUTH AT BEDTIME pantoprazole 40 mg tablet,delayed release Active ? Not available Take 1 tablet every day by oral route at bedtime. prednisone 20 mg tablet Completed ? 07/15/19 19 Take 2 tablets 4 times a day by oral route. simvastatin 40 mg tablet Active ? Not sukhdeep ilable Take 1 tablet every day by oral route at bedtime. tramadol 50 mg tablet Active ? Not availa ble Take 1 tablet twice a day by oral route as needed. zolpidem 5 mg tablet Active ? Not availab le take 1-2 PO night of sleep study Problems Name Status Onset Date Source ? Hyperlipidemia Active 01/28/2018 ? Obesity Active 01/28/2018 ? Essential Hypertension Active 01/28/2018 ? Rheumatoid Arthritis Active 01/28/2018 ? Near Syncope Active 01/28/2018 ? Excessive Dietary Caloric Intake Active 01/28/2018 ? Parasomnia Active 02/03/2018 ? Snoring Active 02/03/2018 ? Insomnia Active 09/13/2018 ? Obstructive Sleep Apnea Syndrome Active ? ? Fibromyalgia Active ? ? Procedures Date Name Performed by ? 02/03/2018 Polysomnogram Information not avai lable Results Lab Results None recorded. Past Encounters None recorded. Social History Tobacco Smoking Status Former Smoker Notes: quit 6 +/- years ago Vaccine List None recorded. Plan of Care Reminders Provider Appointments None ? ? recorded. Lab None ? ? recorded. Referral None ? ? recorded. Procedures None ? ? recorded. Surgeries None ? ? recorded. Imaging None ? ? recorded. Vitals 01/03/2019 01:00PM Office 30 Height Weight BMI Blood Pressure 162.56 cm 105.69 kg 40 kg/m2 130/66 mm[Hg] 09/13/2018 09:30AM Office 30 Height Weight BMI Blood Pressure 162.56 cm 107.82 kg 40.8 kg/m2 130/62 mm[Hg] 07/14/2018 01:00PM Office 30 Height Weight BMI Blood Pressure 162.56 cm 108.32 kg 41 kg/m2 130/74 mm[Hg] 06/02/2018 11:00AM Office 30 Height Weight BMI Blood Pressure 162.56 cm 108.59 kg 41.1 kg/m2 110/60 mm[Hg] 04/07/2018 01:45PM Office 30 Height Weight BMI Blood Pressure 162.56 cm 108.32 kg 41 kg/m2 140/78 mm[Hg] 02/17/2018 08:45AM Office 30 Height Weight BMI Blood Pressure 162.56 cm 107 kg 40.5 kg/m2 160/84 mm[Hg] 02/03/2018 09:00AM New Patient 45 Height Weight BMI Blood Pressure 162.56 cm 106.73 kg 40.4 kg/m2 138/76 mm[Hg]
== END 2020-08-30 13:22 | disposition home or self-care (01) ==
LOC: NCHCN 13:21
PROVIDERS: PCP Family Medicine; Visit Provider Family Medicine
DX: L98.9 Disorder of the skin and subcutaneous tissue, unspecified (principal)
CPT/HCPCS: 87077; 87070; 87186; 87205

== ENCOUNTER 2020-09-06 13:47 | Outpatient (REF) | payer OTHER, SELFPAY ==
[2020-09-06 19:21] LABS: ALT 26 U/L (16-63); AST 18 U/L (15-37); Albumin 3.5 g/dL (3.4-5.0); Alkaline Phosphatase 149 U/L (46-116); Anion Gap 9.2 mmol/L (3-11); BUN 17 mg/dL (7-18); Bilirubin, Total 0.2 mg/dL (0.2-1.0); CO2 27.8 mmol/L (21.0-32.0); CREATININE 1.1 mg/dL (0.70-1.30); Calcium 9.3 mg/dL (8.5-10.1); Chloride 103 mmol/L (98-107); Glucose 106 mg/dL (74-106); Potassium 4.2 mmol/L (3.5-5.1); Sodium 140 mmol/L (136-145)
[2020-09-11 10:35] LABS: Lyme Ab w Rflx to Lyme Confirm Negative (Negative)
[2020-09-12 01:22] LABS: Anaplasma phagocytophilum Negative (Negative); B. miyamotoi PCR Negative (Negative); Babesia divergens/MO-1 Negative (Negative); Babesia duncani Negative (Negative); Babesia microti Negative (Negative); Ehrlichia chaffeensis Negative (Negative); Ehrlichia ewingii/canis Negative (Negative); Ehrlichia muris eauclairensis Negative (Negative)
== END 2020-09-06 13:48 | disposition home or self-care (01) ==
LOC: NCHCN 13:47
PROVIDERS: PCP Family Medicine; Visit Provider Family Medicine
DX: K81.9 Cholecystitis, unspecified (principal); I10 Essential (primary) hypertension; T14.8XXA Other injury of unspecified body region, initial encounter; L98.9 Disorder of the skin and subcutaneous tissue, unspecified; W57.XXXA Bitten or stung by nonvenomous insect and other nonvenomous arthropods, initial encounter
CPT/HCPCS: 80053; 87798; 86618

== ENCOUNTER 2020-11-26 16:09 | Outpatient (REF) | payer OTHER, SELFPAY ==
[2020-11-26 20:34] LABS: ALT 40 U/L (16-63); AST 20 U/L (15-37); HDL Cholesterol 38 mg/dL (40-60); LDL CHOLESTEROL 87 mg/dL (<100)
[2020-11-26 20:58] LABS: Creatine Kinase 182 U/L (39-308)
== END 2020-11-26 16:10 | disposition home or self-care (01) ==
LOC: NCHCN 16:09
PROVIDERS: PCP Family Medicine; Visit Provider Nurse Practitioner Family
DX: E78.5 Hyperlipidemia, unspecified (principal)
CPT/HCPCS: 82550; 83721; 83718; 84450; 84460

== ENCOUNTER 2020-12-26 02:11 | Outpatient (CLI) | payer OTHER, SELFPAY ==
--- NOTE | 2020-12-26 | DI.RAD_ITS ---
Exam(s) XR LUMBAR SPINE COMPLETE EXAM: XR LUMBAR SPINE COMPLETE CLINICAL HISTORY: LOW BACK PAIN, M54.5,? OA,SPINAL STENOSIS. TECHNIQUE: 2D digital imaging was performed. COMPARISON: CR LUMBAR SPINE COMPLETE from 03/20/2013 FINDINGS: There is no evidence of fracture, listhesis, or pars defects. Disc spaces exhibit normal height. No scoliosis. Some degenerative changes lower facet joints noted. Also some degenerative change in th e sacroiliac joints again noted. IMPRESSION: As above. If clinically indicated follow-up MRI of the lumbar spine can be performed. DATA REPOSITORY: RADIATION DOSE DELIVERED:
[2020-12-26 14:14] LABS: CREATININE 1.1 mg/dL (0.70-1.30)
[2020-12-26] MEDS: Gadoterate meglumine 20 ML VIAL 10 ML IVP (15:19)
--- NOTE | 2020-12-26 15:30 | DI.MRI_ITS ---
Exam(s) MR LOWER JOINT LT WO/W EXAM: MR LOWER JOINT LT WO/W CLINICAL HISTORY: LIPOMA,D17.9,F/U ABNL CT,[facility] TECHNIQUE: Multiplanar multisequence MRI of the knee was performed. Both pre and post contrast infu sed sequences were performed. Contrast injected was 20 mL Dotarem. COMPARISON: CT CT ABDOMEN PELVIS W CONTRAST from 07/19/2020 FINDINGS: OSSEOUS: No fractures. No significant osseous lesions. No evidence of avascular necrosis. INTRAPELVIC SOFT TISSUES: There is extensive sigmoid diverticulosis which is only partially included in the field of view here. Prostate gland: Enlarged. No obturator adenopathy. Urinary bladder: Unremarkable MUSCLES: Main finding here is a large lipoma in the left tensor fascia capri muscle, as was evident on outside CT scan dated 07/19/2020 this is well-defined in the muscle and does not exhibit internal en hancement. There are thin septae within this large lipomatosis lesion. No enhancing mural nodules. Measurement of this elliptical finding is 13.5 cm craniocaudal x 6 cm wide x 4.9 cm AP. It exhibits a smooth border without invasion of surrounding structures. IMPRESSION: 1. 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 The lack of enhancing nodule and thickened se ptae day therein is against this being malignant. However, biopsy would be prudent 2. No other significant findings. DATA REPOSITORY:
== END 2020-12-26 02:31 ==
PROVIDERS: PCP Family Medicine; Visit Provider Nurse Practitioner Family
DX: M54.59 Other low back pain (principal); D17.9 Benign lipomatous neoplasm, unspecified; I10 Essential (primary) hypertension
CPT/HCPCS: 72110; 73723; 82565

== ENCOUNTER → 2021-01-07 12:56 | Outpatient (BNVA) | payer OTHER, SELFPAY | PROVIDERS: PCP Family Medicine; Referring Provider Family Medicine; Visit Provider Surgery | DX: D17.24 Benign lipomatous neoplasm of skin and subcutaneous tissue of left leg (principal) | CPT/HCPCS: 99203; 99213 ==

== ENCOUNTER → 2021-03-13 03:21 | Outpatient (CLI) | payer MEDICARE, SELFPAY ==
--- NOTE | 2021-03-13 | DI.RAD_ITS ---
Exam(s) XR HIP PELVIS ADULT BL EXAM: XR HIP PELVIS ADULT BL CLINICAL HISTORY: BILAT LEG PAIN, M79.606. TECHNIQUE: 2D digital imaging was performed of the pelvis and bilateral hips. Three images were obt ained. AP pelvis and lateral views of both hips were obtained. COMPARISON: CT CT ABDOMEN PELVIS W from 07/10/[address] ABDOMEN PELVIS W CONTRAST from 07/19/2020 FINDINGS: BONES: No acute fracture is present. No bony destructive lesion is seen. JOINTS: No dislocation present. Mild narrowing of the hips are seen bilaterally. Degenerative change s are seen in the sacroiliac joints. The symphysis pubis is unremarkable. SOFT TISSUE: Normal. IMPRESSION: Mild degenerative changes. DATA REPOSITORY: RADIATION DOSE DELIVERED:
== END ==
PROVIDERS: PCP Family Medicine; Visit Provider Family Medicine
DX: M79.604 Pain in right leg (principal); M79.605 Pain in left leg
CPT/HCPCS: 73521

== ENCOUNTER → 2021-03-25 11:06 | Outpatient (BNVA) | payer MEDICARE, SELFPAY | PROVIDERS: PCP Family Medicine; Referring Provider Family Medicine; Visit Provider Surgery | DX: D17.20 Benign lipomatous neoplasm of skin and subcutaneous tissue of unspecified limb (principal) | CPT/HCPCS: 99212; 99213 ==

== ENCOUNTER 2022-01-06 16:05 | Outpatient (REF) | payer MEDICARE, SELFPAY ==
[2022-01-06 16:18] LABS: HCT 46.5 % (40.0-50.0); HGB 15.5 g/dL (13.5-17.5); MCH 30.8 pg (27.0-33.0); MCHC 33.3 % (32.0-36.0); MCV 92 fL (80-95); MPV 12.3 fL (8.0-11.0); Platelet Count 240 10^3/uL (130-400); RBC 5.04 10^6/uL (4.36-5.78); RDW 13.9 % (11.8-14.1); RDW-SD 47.3 fL; WBC 10.92 10^3/uL (4.4-10.8)
[2022-01-06 16:24] LABS: ALT 23 U/L (16-63); AST 23 U/L (15-37); Albumin 3.8 g/dL (3.4-5.0); Alkaline Phosphatase 104 U/L (46-116); BUN 18 mg/dL (7-18); Bilirubin, Total 0.3 mg/dL (0.2-1.0); CREATININE 0.9 mg/dL (0.70-1.30); Calcium 9.6 mg/dL (8.5-10.1); Calculated LDL 80 mg/dL (<100); Chloride 104 mmol/L (98-107); Cholesterol 149 mg/dL (<200); Estimated GFR 91.88 (mL/min/1.73m2); Glucose 102 mg/dL (74-106); HDL Cholesterol 37 mg/dL (40-60); Potassium 4.2 mmol/L (3.5-5.1); Sodium 138 mmol/L (136-145); Total Protein 8.3 g/dL (6.4-8.2); Triglyceride 162 mg/dL (<150)
[2022-01-06 17:18] LABS: Hemoglobin A1C 6.3 % (<5.7)
[2022-01-06 17:35] LABS: Vitamin D 25 Total 13.2 ng/mL (30-100)
[2022-01-07 18:07] LABS: PSA, Screening 6.9 ng/mL (<=6.5)
== END 2022-01-06 16:06 | disposition home or self-care (01) ==
LOC: NCHCN 16:05
PROVIDERS: PCP Family Medicine; Visit Provider Family Medicine
DX: E78.5 Hyperlipidemia, unspecified (principal); E11.9 Type 2 diabetes mellitus without complications; L40.9 Psoriasis, unspecified; M54.16 Radiculopathy, lumbar region; N40.0 Benign prostatic hyperplasia without lower urinary tract symptoms; Z12.5 Encounter for screening for malignant neoplasm of prostate
CPT/HCPCS: 80053; 80061; 82306; 84153; 85027; 83036

== ENCOUNTER 2022-05-20 11:49 | Outpatient (CLI) | payer MEDICARE, SELFPAY ==
--- NOTE | 2022-05-20 | DI.RAD_ITS ---
Exam(s) XR SHOULDER RT COMPLETE 2+V EXAM: XR SHOULDER RT COMPLETE 2+V CLINICAL HISTORY: RT SHOULDER PAIN, M25.511. TECHNIQUE: 2D digital imaging was performed of the right shoulder. Five images were obtained. AP, Grashey, Y-view and axillary views were obtained. COMPARISON: No exams were available for comparison FINDINGS: BONES: No acute fracture is present. No bony destructive lesion is seen. JOINTS: No dislocation present. There are degenerative changes seen at the acromioclavicular joint. The glenohumeral joint appears well maintained. SOFT TISSUE: Normal. IMPRESSION: Mild degenerative changes in the right AC joint. DATA REPOSITORY: RADIATION DOSE DELIVERED:
== END 2022-05-20 12:09 ==
PROVIDERS: PCP Family Medicine; Visit Provider Family Medicine
DX: M25.511 Pain in right shoulder (principal); M25.811 Other specified joint disorders, right shoulder; M19.011 Primary osteoarthritis, right shoulder
CPT/HCPCS: 73030

== ENCOUNTER → 2022-06-01 12:33 | Outpatient (BNVA) | payer MEDICARE, SELFPAY | PROVIDERS: PCP Family Medicine; Referring Provider Family Medicine; Visit Provider Urology | DX: R97.20 Elevated prostate specific antigen [PSA] (principal); R35.0 Frequency of micturition | CPT/HCPCS: 51798; 99214 ==

== ENCOUNTER 2022-06-01 15:05 | Outpatient (REF) | payer MEDICARE, SELFPAY ==
[2022-06-02 18:40] LABS: PSA, Diagnostic 6.3 ng/mL (<=6.5)
== END 2022-06-01 15:06 | disposition home or self-care (01) ==
LOC: LBN 15:05
PROVIDERS: PCP Family Medicine; Visit Provider Urology
DX: R97.20 Elevated prostate specific antigen [PSA] (principal)
CPT/HCPCS: 84153

== ENCOUNTER 2022-06-15 02:04 | Outpatient (CLI) | payer MEDICARE, SELFPAY ==
[2022-06-15 14:54] LABS: Estimated GFR 80.47 (mL/min/1.73m2)
== END 2022-06-15 02:05 | disposition home or self-care (01) ==
LOC: LBO 02:05
PROVIDERS: PCP Family Medicine; Visit Provider Urology
DX: R97.20 Elevated prostate specific antigen [PSA] (principal)
CPT/HCPCS: 36415; 82565

== ENCOUNTER 2022-07-21 16:36 | Emergency (ER) | payer MEDICARE, SELFPAY ==
--- NOTE | 2022-07-21 16:45 | RT.EKG_ITS ---
APPROVED REPORT Exam: Resting ECG Reason for Exam: dizzy Patient Location: E HR:97 bpm ECG Measurements Heart Rate 97 AXIS GA 163 P 51 QRSd 102 QRS -9 QT 337 T 59 QTc 429 Conclusion Sinus rhythm...normal P axis, V-rate 60- 99 Low voltage, extremity leads...all extremity leads <0.5mV sinus rhythm, normal axis, normal intervals, non ischemic
[2022-07-21 16:46] VITALS: BP 152/80; PULSE 101; RESP 18; TEMP 36.8; O2SAT 96
[2022-07-21 16:48] VITALS: RESP 16
--- NOTE | 2022-07-21 17:15 | DI.RAD_ITS ---
Exam(s) XR CHEST 2V PA LATERAL EXAM: XR CHEST 2V PA LATERAL CLINICAL HISTORY: near syncope TECHNIQUE: 2D digital imaging was performed. COMPARISON: CR XR CHEST 2V PA LATERAL from 07/10/2020 FINDINGS: HEART: Normal size. Aorta: Not dilated. PULMONARY VASCULATURE: Normal. LUNGS: Clear. PLEURAL SPACE: No pleural effusion or pneumothorax. BONE:Unremarkable for age. IMPRESSION: No acute abnormality. DATA REPOSITORY: RADIATION DOSE DELIVERED:
--- NOTE | 2022-07-21 17:27 | ED.GENADUL_ITS ---
Discharge Plan Disposition Patient Disposition: Home Condition: Improving Discharge Details Chief Complaint: Dizzy/Sync Clinical Impression: Near syncope Primary Care Provider: Lise Hearn V ED Provider: Ander Rooney Home Meds and New Rx's Prescriptions: No Action Humira 40 mg/0.8 mL syringe kit 40 mg subcut Q2W pregabalin [Lyrica] 100 mg capsule 100 mg PO TID Patient Comments: takes 75 and 50 mg tabs to equal 125 mg lisinopril 10 mg tablet 20 mg PO DAILY Patient Comments: TAKE 1 TABLET BY MOUTH DAILY simvastatin 80 MG tablet 40 mg PO HS aspirin [Aspir-81] 81 MG tablet,delayed release (DR/EC) 81 mg PO DAILY AM pantoprazole 40 MG tablet,delayed release (DR/EC) 40 mg PO HS hydrochlorothiazide 25 MG tablet 25 mg PO DAILY AM tamsulosin 0.4 mg capsule 0.4 mg PO HS Patient Comments: TAKE 1 CAPSULE BY MOUTH AT BEDTIME triamcinolone acetonide 0.1 % ointment 1 applic TOPICAL BID Patient Comments: APPLY TOPICALLY TO RIGHT MID BACK RASH TWICE DAILY Discharge Instructions Instructions: Near Syncope (ED) Additional Instructions: Please return for carotid ultrasound on , July 23. Call phone number at top of ultrasound sheet to confirm appointment time phone number is [phone]. Please return to the emergency department for any worsening symptoms. Medical Decision Making 72-year-old male history of hypertension hyperlipidemia presents with intermittent positional presyncope, lightheadedness when he goes from seated to standing position. No full syncope no chest pain or shortness of breath. Afebrile nontoxic, mildly tachycardic and hypertensive arrival, no hypoxia no peripheral edema. Lung and heart sounds clear bilaterally. EKG normal sinus rhythm nonischemic. Physical consistent with postural hypotension versus orthostasis versus less likely vasovagal. Patient has had intermittent left neck discomfort worse with movement no carotid bruits appreciated however must consider carotid stenosis as well. Will provide fluid bolus, will assess basic labs troponin EKG chest x-ray. We will schedule outpatient ultrasound of carotids. Patient's close follow-up with primary care physician 19: 02 patient resting comfortably no acute distress. Likely component of dehydration/orthostatic hypotension. We will schedule him for carotid ultrasound HPI General Date/Time Provider Initiated Documentation: 07/21/22 17:03 . HPI Narrative: 72-year-old male history of hypertension hyperlipidemia presents with positional presyncope, worse when he is going from a seated to standing position, happens multiple times per week has been going on for several weeks. No chest pain or shortness of breath. Has not lost consciousness usually states that he lays down and feels better. Related Data Home Medications Medication Instructions Recorded Confirmed aspirin 81 mg tablet,delayed 81 mg PO DAILY AM 11/09/13 07/21/22 release (Aspir-) hydrochlorothiazide 25 mg tablet 25 mg PO DAILY AM 11/09/13 07/21/22 pantoprazole 40 mg tablet,delayed 40 mg PO HS 11/09/13 07/21/22 release simvastatin 80 mg tablet 40 mg PO HS 11/09/13 07/21/22 tamsulosin 0.4 mg capsule 0.4 mg PO HS 07/10/20 07/21/22 triamcinolone acetonide 0.1 % 1 applic topical BID 07/10/20 03/25/21 topical ointment adalimumab 40 mg/0.8 mL 40 mg subcut Q2W 01/02/21 07/21/22 subcutaneous syringe kit (Humira) lisinopril 10 mg tablet 20 mg PO DAILY 05/25/22 07/21/22 pregabalin 100 mg capsule (Lyrica) 100 mg PO TID 05/25/22 07/21/22 Allergies Allergy/AdvReac Type Severity Reaction Status Date / Time No Known Allergies Allergy Unverified 07/21/22 16:50 General Stated Complaint: Dizzy/Sync ALE: 3 Review of Systems Narrative: Review of Systems Constitutional: negative Eyes: negative ENT: negative Cardiovascular: Presyncope Respiratory: negative Gastrointestinal: negative : negative Musculoskeletal: negative Skin: negative Neurologic: negative Psych: negative PFSH All Active Problems (Updated 07/21/22 @ 19:04 by Ander Rooney MD) Near syncope (Acute) HTN (hypertension) (Chronic) Chest pain (Acute) Lipoma (Acute) Venous insufficiency (Acute) Ventral hernia (Acute) Psoriasis (Chronic) Loose stools (Acute) Back pain (Acute) Vertigo, benign paroxysmal (Acute) Urinary frequency (Acute) Elevated PSA (Acute) Inflammatory arthritis (Acute) Lipoma of extremity (Acute) Obesity (Chronic) MCTD (mixed connective tissue disease) (Acute) IBS (irritable bowel syndrome) (Chronic) Intermittent chest pain (Acute) Skin lesion (Acute) Anemia (Chronic) Rectal bleeding (Acute) Cholecystitis (Acute) Near syncope (Acute) Obesity due to excess calories (Chronic) Rheumatoid arthritis (Chronic) Essential hypertension (Chronic) Hyperlipidemia, mixed (Chronic) Medical History BPH (benign prostatic hyperplasia) Chronic pain syndrome Compression fracture of spine Depression Diabetes Emphysema/COPD GERD (gastroesophageal reflux disease) Hx of pneumothorax Hypotension Impacted cerumen Personal history of smoking Rash Sleep apnea Uveitis Vertigo Surgical History S/P laparoscopic cholecystectomy at [facility] for gangrenous cholecystitis Social History Smoking/Tobacco Use Status: Former Tobacco Use Quit Date: 03/08/12 Pack-years: 40 Smoking risk assessment performed?: Yes Alcohol Intake: never Drug use: Never Substance use type: does not use Household members: none Do you feel safe at home: Yes Exam Narrative Exam Narrative: Physical Examination General: alert, awake, cooperative, resting comfortably, no acute distress HEENT: normocephalic, atraumatic; PERRL, EOM intact, conjunctiva normal; no nasal discharge; moist mucous membranes, oral and pharyngeal mucosa normal, tolerating secretions Neck: supple, trachea midline; full ROM Chest: normal to inspection Respiratory: normal respiratory effort, speaking in full sentences, clear to auscultation, no wheezing, rales or rhonchi Cardiac: regular rate, regular rhythm, S1S2 intact, no murmurs rubs or gallops GI: abdomen soft, non-tender, non-distended; no palpable mass or hepatosplenomegaly Skin: no lesions, rashes or trauma appreciated Neuro: AAOx3, normal speech, moving all extremities Extremities: No peripheral edema Psych: Appropriate mood and affect Course Vital Signs Vital signs: Vital Signs Temperature 36.8 C 07/21/22 16:46 Pulse 101 H 07/21/22 16:46 Respiratory Rate 18 07/21/22 16:46 Blood Pressure 152/80 H 07/21/22 16:46 Pulse Oximetry 96 07/21/22 16:46 Temperature 36.8 C 07/21/22 16:46 Temperature Source Temporal Artery Scan 05/16/23 16:46 Pulse 101 H 07/21/22 16:46 Respiratory Rate 16 07/21/22 16:48 Respiratory Effort Normal 07/21/22 16:48 Respiratory Depth Normal 07/21/22 16:48 Respiratory Pattern Normal 07/21/22 16:48 Blood Pressure 152/80 H 07/21/22 16:46 Blood Pressure Position Sitting 07/21/22 16:46 Pulse Oximetry 96 07/21/22 16:46 Oxygen Delivery Method Room Air 07/21/22 16:46 Oxygen Flow Rate 0 07/21/22 16:46 Pain Level 0 07/21/22 16:46
[2022-07-21] MEDS: Normal Saline 1,000 ML 1000 ML IV (17:30)
[2022-07-21 17:46] LABS: Abs Immature Grans 0.05 10^3/uL (0.0-0.06); Absolute Basophil Count 0.02 10^3/uL (0.0-0.2); Absolute Eosinophil Count 0.07 10^3/uL (0.0-0.7); Absolute Monocyte Count 1.12 10^3/uL (0.1-0.8); Absolute Neutrophil Count 8.48 10^3/uL (1.2-6.7); Basophils % 0.2; Eosinophils % 0.6; HCT 42.4 % (40.0-50.0); HGB 14.3 g/dL (13.5-17.5); Immature Grans % 0.4; Lymphocytes % 15.6; MCH 30.8 pg (27.0-33.0); MCHC 33.7 % (32.0-36.0); MCV 91 fL (80-95); MPV 11.7 fL (8.0-11.0); Monocytes % 9.7; Neutrophils % 73.5; Platelet Count 265 10^3/uL (130-400); RBC 4.65 10^6/uL (4.36-5.78); RDW 13.8 % (11.8-14.1); RDW-SD 46.6 fL; WBC 11.54 10^3/uL (4.4-10.8)
[2022-07-21 18:00] LABS: ALT 23 U/L (16-63); AST 17 U/L (15-37); Albumin 3.6 g/dL (3.4-5.0); Alkaline Phosphatase 105 U/L (46-116); Anion Gap 8.6 mmol/L (3-11); BUN 28 mg/dL (7-18); Bilirubin, Total 0.2 mg/dL (0.2-1.0); CO2 25.4 mmol/L (21.0-32.0); CREATININE 1.4 mg/dL (0.70-1.30); Calcium 9.4 mg/dL (8.5-10.1); Chloride 101 mmol/L (98-107); Estimated GFR 53.74 (mL/min/1.73m2); Glucose 111 mg/dL (74-106); Potassium 3.9 mmol/L (3.5-5.1); Sodium 135 mmol/L (136-145); Troponin I < 50 ng/L (<or=60)
--- NOTE | 2022-07-21 18:46 | DI.VRAD_ITS ---
PROCEDURE INFORMATION: Exam: XR Chest Exam date and time: 07/21/2022 6:17 PM Age: 72 years old Clinical indication: Other: Near syncope TECHNIQUE: Imaging protocol: Radiologic exam of the chest. Views: 2 views. COMPARISON: 1. CR XR CHEST 2V PA LATERAL 07/10/2020 12:[address] CHEST LUNG CANCER SCREEN 12/23/2018 2:12 PM 3. CR XR SHOULDER RT COMPLETE 2+V 05/20/2022 2:20 PM FINDINGS: Lungs: Unremarkable. No consolidation. Pleural spaces: Unremarkable. No pleural effusion. No pneumothorax. Heart/Mediastinum: Unremarkable. No cardiomegaly. Vasculature: There are arteriosclerotic changes of the aorta. Bones/joints: There are degenerative changes of the thoracic spine. IMPRESSION: No significant change when compared to the earlier study. Please see discussion above. Dictated and Authenticated by: Sujit Esteban MD. Ordering:KIP Worthington MD
[2022-07-21 19:10] VITALS: BP 125/70; PULSE 92; RESP 16; O2SAT 98
--- NOTE | 2022-07-21 19:48 | NUR.NOTE ---
DI requisition faxed to have f/u carotid ultrasound on 07/23/22.Nursing Note:
== END 2022-07-21 19:12 | disposition home or self-care (01) ==
PROVIDERS: Emergency Provider Emergency Medicine; PCP Family Medicine
DX: R55 Syncope and collapse (principal); R42 Dizziness and giddiness
CPT/HCPCS: 36415; 80053; 93005; 96360; 99284; 71046; 84484; 85025; 93010; 99283

== ENCOUNTER 2022-07-24 01:31 | Outpatient (CLI) | payer MEDICARE, SELFPAY ==
--- NOTE | 2022-07-24 12:15 | DI.US_ITS ---
Exam(s) US CAROTID EXAM: US CAROTID CLINICAL HISTORY: NECK PAIN, NEAR SYNCOPE, R55, VERTIGO, H81.4, HTN, I10. TECHNIQUE: Ultrasound carotids performed using grayscale, color-flow, and spectral Doppler imaging. COMPARISON: US CAROTID ULTRASOUND from 03/12/2017 FINDINGS: RIGHT CAROTID ARTERY: Plaque: Minimal calcific plaque is seen in the carotid bulb and proximal internal carotid artery. Velocity elevation: None. LEFT CAROTID ARTERY: Plaque: Mild calcific plaque is seen in the carotid bulb. Velocity elevation: None. VERTEBRAL ARTERIES: Antegrade flow. Measurements: R Bulb: 68.6cm/s PS / 11.6cm/s ED R CCA: 96.3cm/s PS / 16.7cm/s ED R ECA: 113.4cm/s PS / 6.8cm/s ED R ICA Prox: 98.9cm/s PS / 20.1cm/s ED R ICA Mid: 86.8cm/s PS / 21.3cm/s ED R ICA Distal: 86.7cm/s PS /21.3cm/s ED R Vert: 47.5cm/s PS / 11.2cm/s ED R SVR: 0.8 R DVR: 1 L Bulb: 81.9cm/s PS / 14.1cm/s ED L CCA: 97.7cm/s PS / 19.53cm/s ED L ECA: 115.4cm/s PS / 7.7cm/s ED L ICA Prox: 94.7cm/s PS / 22.1cm/s ED L ICA Mid: 97.9cm/s PS / 24.4cm/s ED L ICA Distal: 81.9cm/s PS / 19.5cm/s ED L Vert: 68.5cm/s PS / 14.6cm/s ED L SVR: 1 L DVR: 1.2 IMPRESSION: No evidence for hemodynamically significant carotid stenosis. Criteria for Carotid Stenosis: Normal: ICA PSV <125 cm/s no plaque or intimal thickening is visible. <50% stenosis: ICA PSV <125 cm/s and plaque or intimal thickening is visible. 50-69% stenosis: ICA PSV is 125-250 cm/s and plaque is visible. >70% stenosis to near occlusion: ICA PSV >250 cm/s with visible plaque and luminal narrowing. DATA REPOSITORY:
== END 2022-07-24 01:51 ==
PROVIDERS: PCP Family Medicine; Visit Provider Emergency Medicine
DX: R55 Syncope and collapse (principal); H81.4 Vertigo of central origin; I10 Essential (primary) hypertension
CPT/HCPCS: 93880

== ENCOUNTER → 2022-07-28 14:55 | Outpatient (BNVA) | payer MEDICARE, SELFPAY | PROVIDERS: PCP Family Medicine; Referring Provider Family Medicine; Visit Provider Urology | DX: R97.20 Elevated prostate specific antigen [PSA] (principal); R35.0 Frequency of micturition | CPT/HCPCS: 99214 ==

== ENCOUNTER 2022-08-21 14:17 | Outpatient (REF) | payer MEDICARE, SELFPAY ==
[2022-08-21 19:14] LABS: Hemoglobin A1C 6.5 % (<5.7)
[2022-08-21 19:26] LABS: Anion Gap 10.6 mmol/L (3-11); BUN 37 mg/dL (7-18); CO2 23.4 mmol/L (21.0-32.0); Calcium 9.2 mg/dL (8.5-10.1); Chloride 101 mmol/L (98-107); Estimated GFR 80.47 (mL/min/1.73m2); Glucose 123 mg/dL (74-106); Potassium 4.6 mmol/L (3.5-5.1); Sodium 135 mmol/L (136-145)
== END 2022-08-21 14:18 | disposition home or self-care (01) ==
LOC: NCHCN 14:17
PROVIDERS: PCP Family Medicine; Visit Provider Family Medicine
DX: R42 Dizziness and giddiness (principal); R79.89 Other specified abnormal findings of blood chemistry; I10 Essential (primary) hypertension
CPT/HCPCS: 80048; 83036

== ENCOUNTER → 2022-09-04 10:37 | Outpatient (BNVA) | payer MEDICARE, SELFPAY | PROVIDERS: PCP Family Medicine; Referring Provider Family Medicine; Visit Provider Urology | DX: R35.0 Frequency of micturition (principal) | CPT/HCPCS: 51798; 99213 ==

== ENCOUNTER 2022-09-25 00:41 | Outpatient (CLI) | payer MEDICARE, SELFPAY ==
--- NOTE | 2022-09-25 14:18 | DI.RAD_ITS ---
Exam(s) XR CERVICAL SPINE COMP 4-5V EXAM: XR CERVICAL SPINE COMP 4-5V CLINICAL HISTORY: CERVICALGIA,M54.2. TECHNIQUE: 2D digital imaging was performed. COMPARISON: No exams were available for comparison FINDINGS: The C5-6 level is somewhat obscured by the patient's shoulder and overlying clavicle. No fracture or destructive lesion. Anteriorly projecting endplate osteophytes are noted throughout. Question of partial fusion at C5-C6. Narrowing of the C 6 7 disc space. Neural foraminal narrowing on the right at C5-6 on the left at C6-7. Mild facet joint degenerative changes. ALIGNMENT: Some straightening of normal cervical lordosis with secondary to degenerative changes. Th e odontoid and atlantoaxial articulations are normal. SOFT TISSUE: Normal. The lung apices are clear. The airway is unremarkable. IMPRESSION: Degenerative changes greatest at C5-6 and C6-7. DATA REPOSITORY: RADIATION DOSE DELIVERED:
== END 2022-09-25 01:01 ==
LOC: DI 00:41
PROVIDERS: PCP Family Medicine; Visit Provider Family Medicine
DX: M50.322 Other cervical disc degeneration at C5-C6 level (principal); M50.323 Other cervical disc degeneration at C6-C7 level
CPT/HCPCS: 72050

== ENCOUNTER 2022-09-25 14:16 | Outpatient (CLI) | payer MEDICARE, SELFPAY | END 2022-09-25 14:17 | disposition home or self-care (01) | PROVIDERS: PCP Family Medicine; Visit Provider Family Medicine | DX: R42 Dizziness and giddiness (principal); R55 Syncope and collapse | CPT/HCPCS: 93246 ==

== ENCOUNTER → 2022-11-02 01:53 | Outpatient (CLI) | payer MEDICARE, SELFPAY ==
--- NOTE | 2022-11-02 | DI.MRI_ITS ---
Exam(s) MR CERVICAL SPINE WO EXAM: MR CERVICAL SPINE WO CLINICAL HISTORY: CERVICALGIA M54.2 LIGHTHEADEDNESS R42 VERTIGO H81.10 TECHNIQUE: Multiplanar multisequence MRI of the cervical spine was performed without intravenous con trast. COMPARISON: CR XR CERVICAL SPINE COMP 4-5V from 09/25/2022 FINDINGS: BONES: Vertebral body heights are maintained. Alignment is normal. Bone marrow signal intensity is wi thin normal limits. CERVICAL CORD: Craniovertebral junction is unremarkable. The cervical cord is normal size and signal intensity. SOFT TISSUES: Unremarkable. C2-3: No disc herniation or bulge is identified. No evidence of neural foraminal narrowing. No signi ficant central canal stenosis. C3-4: No disc herniation or bulge is identified. No evidence of neural foraminal narrowing. No signif icant central canal stenosis. C4-5: No disc herniation or bulge is identified. No evidence of neural foraminal narrowing. No signif icant central canal stenosis. C5-6: No disc herniation or bulge is identified.Right neural foraminal narrowing secondary to an encr oachment by endplate osteophytes.. No significant central canal stenosis. C6-7: No disc herniation or bulge is identified. Bilateral neural foraminal narrowing. No significant central canal stenosis. C7-T1: No disc herniation or bulge is identified. No evidence of neural foraminal narrowing. No signi ficant central canal stenosis. IMPRESSION: no evidence of a disc herniation. Neural foraminal narrowing, greatest on the right at C5-6. DATA REPOSITORY:
== END ==
PROVIDERS: PCP Family Medicine; Visit Provider Family Medicine
DX: M99.61 Osseous and subluxation stenosis of intervertebral foramina of cervical region (principal)
CPT/HCPCS: 72141

== ENCOUNTER → 2022-11-19 09:42 | Outpatient (BNVA) | payer MEDICARE, SELFPAY | PROVIDERS: PCP Family Medicine; Referring Provider Family Medicine; Visit Provider Urology | DX: R35.0 Frequency of micturition (principal); R97.20 Elevated prostate specific antigen [PSA]; I10 Essential (primary) hypertension | CPT/HCPCS: 51798; 99213 ==

== ENCOUNTER → 2023-02-02 08:12 | Outpatient (BNVA) | payer MEDICARE, SELFPAY | PROVIDERS: PCP Family Medicine; Referring Provider Family Medicine; Visit Provider Urology | DX: N40.1 Benign prostatic hyperplasia with lower urinary tract symptoms (principal); R35.0 Frequency of micturition; R35.1 Nocturia; R97.20 Elevated prostate specific antigen [PSA] | CPT/HCPCS: 99213 ==

== ENCOUNTER 2023-02-02 10:30 | Outpatient (CLI) | payer MEDICARE, SELFPAY | END 2023-02-02 10:31 | disposition home or self-care (01) | LOC: LBO 10:33 | PROVIDERS: PCP Family Medicine; Visit Provider Urology | DX: R97.20 Elevated prostate specific antigen [PSA] (principal) | CPT/HCPCS: 36415; 84153 ==

== ENCOUNTER 2023-02-23 20:30 | Outpatient (REF) | payer MEDICARE, SELFPAY ==
[2023-02-23 18:35] LABS: HGB 14.9 g/dL (13.5-17.5); MCH 29.9 pg (27.0-33.0); MCHC 33.1 % (32.0-36.0); MCV 90 fL (80-95); MPV 11.2 fL (8.0-11.0); Platelet Count 265 10^3/uL (130-400); RBC 4.99 10^6/uL (4.36-5.78); RDW 14.6 % (11.8-14.1); RDW-SD 48.1 fL; WBC 10.27 10^3/uL (4.4-10.8)
[2023-02-23 19:13] LABS: Hemoglobin A1C 6.4 % (<5.7)
[2023-02-23 19:30] LABS: ALT 19 U/L (16-63); AST 15 U/L (15-37); Albumin 3.2 g/dL (3.4-5.0); Alkaline Phosphatase 95 U/L (46-116); Anion Gap 6.7 mmol/L (3-11); BUN 20 mg/dL (7-18); Bilirubin, Total 0.2 mg/dL (0.2-1.0); CO2 27.3 mmol/L (21.0-32.0); CREATININE 0.9 mg/dL (0.70-1.30); Calcium 9.4 mg/dL (8.5-10.1); Chloride 104 mmol/L (98-107); Estimated GFR 90.74 (mL/min/1.73m2); Glucose 109 mg/dL (74-106); Potassium 4.3 mmol/L (3.5-5.1); Sodium 138 mmol/L (136-145); Total Protein 7.5 g/dL (6.4-8.2)
== END 2023-02-23 20:31 | disposition home or self-care (01) ==
LOC: NCHCN 20:30
PROVIDERS: PCP Family Medicine; Visit Provider Family Medicine
DX: E11.9 Type 2 diabetes mellitus without complications (principal); L40.9 Psoriasis, unspecified
CPT/HCPCS: 80053; 85027; 83036

== ENCOUNTER → 2023-04-01 03:17 | Outpatient (CLI) | payer MEDICARE, SELFPAY ==
--- NOTE | 2023-04-01 | DI.CTLCSR_ITS ---
Exam(s) CT CHEST LUNG CANCER SCREEN EXAM: CT CHEST LUNG CANCER SCREEN CLINICAL HISTORY: HX NICOTINE DEPENDENCE Z87.891 SCREENING FOR LUNG CANCER TECHNIQUE: Imaging Protocol: Axial computed tomography images with coronal and sagittal reformatted images were created and reviewed COMPARISON: CT CT CHEST LUNG CANCER SCREEN from 12/23/[address] ABDOMEN PELVIS W from 07/10/[address] ABDOMEN PELVIS W CONTRAST from 07/19/2020 FINDINGS: Tracheobronchial tree: Patent where visualized. Pulmonary parenchyma: Mild centrilobular emphysematous changes. No focal consolidating infiltrates. Dependent atelectatic changes are seen in the lung bases. Lung Nodules: None. Mediastinum and Bre: No dominant adenopathy or fluid collection. The esophagus is unremarkable. Thyroid gland: Unremarkable. Lymph nodes: Unremarkable. Pleura: No effusion or pneumothorax. Heart: The heart is not dilated. Coronary artery calcifications and/or stents are present. There is a small pericardial effusion. Aorta: Thoracic aorta non-dilated.Atherosclerosis is present. Upper abdomen: Stable left renal cyst. Status post cholecystectomy. Soft Tissues: Unremarkable. Bones: Within normal limits. Old left rib deformities. IMPRESSION: No pulmonary nodules. Lung RADS Cat 1 - Negative: No nodules and definitely benign nodules Lung-RADS 1.0 CATEGORIES: Category 0 - Prior chest CT exam(s) being located for comparison. Category 1 - Annual screening in 12 months. No nodules or definitely benign nodules. Category 2 - Annual screening in 12 months. Benign appearance. Nodules with low likelihood of becomin g active cancer. Category 3 - 6-month follow-up. Probably benign. Short-term follow-up suggested. Nodules with low lik elihood of becoming active cancer. Category 4A - 3-month follow-up and CT/PET if >8 mm in size. Suspicious finding. Findings which requi re additional testing. Category 4B - Findings which require additional testing and tissue sampling. Suspicious finding. Category 4X - Category 3 or 4 nodules with additional features or imaging findings that increases the suspicion of malignancy. Modifier S- Potentially clinically significant finding. (Non lung cancer) RADIATION DOSE DELIVERED: 75.04mGy.cm Total DLP 75.04mGy.cmTotal DLP DATA REPOSITORY: All CT scans at this facility are submitted to the National Radiology Data Registry (NRDR) Dose Index Registry (DIR) with the [employer] (ACR). RADIATION OPTIMIZATION: All CT scans at this facility use at least one of these dose optimization te chniques: automated exposure control; mA and/or kV adjustment per patient size (includes targeted exa ms where dose is matched to clinical indication); or iterative reconstruction.
== END ==
PROVIDERS: PCP Family Medicine; Visit Provider Family Medicine
DX: Z87.891 Personal history of nicotine dependence (principal); Z12.2 Encounter for screening for malignant neoplasm of respiratory organs
CPT/HCPCS: 71271

== ENCOUNTER 2023-04-15 14:45 | Outpatient (REF) | payer MEDICARE, SELFPAY ==
[2023-04-15 18:57] LABS: ESR 23 mm/hr (0-20)
[2023-04-15 18:58] LABS: Abs Immature Grans 0.03 10^3/uL (0.0-0.06); Absolute Basophil Count 0.04 10^3/uL (0.0-0.2); Absolute Eosinophil Count 0.09 10^3/uL (0.0-0.7); Absolute Lymphocyte Count 2.05 10^3/uL (1.2-3.4); Absolute Monocyte Count 1.01 10^3/uL (0.1-0.8); Absolute Neutrophil Count 6.45 10^3/uL (1.2-6.7); Basophils % 0.4; Eosinophils % 0.9; HCT 42.8 % (40.0-50.0); HGB 14.3 g/dL (13.5-17.5); Immature Grans % 0.3; Lymphocytes % 21.2; MCH 30.6 pg (27.0-33.0); MCHC 33.4 % (32.0-36.0); MCV 92 fL (80-95); MPV 11.8 fL (8.0-11.0); Monocytes % 10.4; Neutrophils % 66.8; Platelet Count 239 10^3/uL (130-400); RBC 4.67 10^6/uL (4.36-5.78); RDW 14.3 % (11.8-14.1); RDW-SD 48.1 fL; WBC 9.67 10^3/uL (4.4-10.8)
[2023-04-15 19:07] LABS: ALT 19 U/L (16-63); AST 14 U/L (15-37); Albumin 3.1 g/dL (3.4-5.0); Alkaline Phosphatase 85 U/L (46-116); Bilirubin, Direct 0.1 mg/dL (0.0-0.2); Bilirubin, Total 0.3 mg/dL (0.2-1.0); CREATININE 0.9 mg/dL (0.70-1.30); Estimated GFR 90.74 (mL/min/1.73m2); Total Protein 7.1 g/dL (6.4-8.2)
[2023-04-15 19:10] LABS: C-Reactive Protein < 0.50 mg/dL (<or=0.5)
== END 2023-04-15 14:46 | disposition home or self-care (01) ==
LOC: LBN 14:45
PROVIDERS: PCP Family Medicine; Visit Provider Internal Medicine
DX: L40.50 Arthropathic psoriasis, unspecified (principal); M19.90 Unspecified osteoarthritis, unspecified site; M72.0 Palmar fascial fibromatosis [Dupuytren]; Z79.899 Other long term (current) drug therapy
CPT/HCPCS: 80076; 85652; 82565; 85025; 86140

== ENCOUNTER 2023-07-27 05:13 | Outpatient (CLI) | payer MEDICARE, SELFPAY ==
[2023-07-27 18:25] LABS: PSA, Diagnostic 9.6 ng/mL (<=6.5)
== END 2023-07-27 05:14 | disposition home or self-care (01) ==
LOC: LBO 05:13
PROVIDERS: PCP Family Medicine; Visit Provider Urology
DX: R97.20 Elevated prostate specific antigen [PSA] (principal)
CPT/HCPCS: 36415; 84153

== ENCOUNTER → 2023-08-03 08:17 | Outpatient (BNVA) | payer MEDICARE, SELFPAY | PROVIDERS: PCP Family Medicine; Visit Provider Urology | DX: N40.1 Benign prostatic hyperplasia with lower urinary tract symptoms (principal); R97.20 Elevated prostate specific antigen [PSA] | CPT/HCPCS: 99214 ==

== ENCOUNTER 2023-12-14 13:18 | Outpatient (CLI) | payer MEDICARE, SELFPAY ==
[2023-12-14 15:03] LABS: Abs Immature Grans 0.05 10^3/uL (0.0-0.06); Absolute Basophil Count 0.05 10^3/uL (0.0-0.2); Absolute Eosinophil Count 0.12 10^3/uL (0.0-0.7); Absolute Monocyte Count 1.08 10^3/uL (0.1-0.8); Basophils % 0.4 %; Eosinophils % 0.9 %; HCT 47.9 % (40.0-50.0); HGB 15.6 g/dL (13.5-17.5); Immature Grans % 0.4 %; Lymphocytes % 12.8 %; MCH 30.4 pg (27.0-33.0); MCHC 32.6 % (32.0-36.0); MCV 93 fL (80-95); MPV 11.7 fL (8.0-11.0); Monocytes % 7.9 %; Neutrophils % 77.6 %; Platelet Count 228 10^3/uL (130-400); RBC 5.14 10^6/uL (4.36-5.78); RDW 13.4 % (11.8-14.1); RDW-SD 46.8 fL
[2023-12-14 15:06] LABS: Absolute Lymphocyte Count 1.75 10^3/uL (1.2-3.4); Absolute Neutrophil Count 10.63 10^3/uL (1.2-6.7)
[2023-12-14 15:30] LABS: ALT 21 U/L (16-63); AST 15 U/L (15-37); Albumin 3.4 g/dL (3.4-5.0); Alkaline Phosphatase 104 U/L (46-116); Bilirubin, Direct 0.1 mg/dL (0.0-0.2); Bilirubin, Total 0.31 mg/dL (0.2-1.0); Estimated GFR 79.97 (mL/min/1.73m2); Total Protein 7.9 g/dL (6.4-8.2)
== END 2023-12-14 13:19 | disposition home or self-care (01) ==
LOC: LBO 13:18
PROVIDERS: PCP Family Medicine; Visit Provider Internal Medicine
DX: Z51.81 Encounter for therapeutic drug level monitoring (principal); M19.90 Unspecified osteoarthritis, unspecified site; R78.89 Finding of other specified substances, not normally found in blood; L40.9 Psoriasis, unspecified; Z79.899 Other long term (current) drug therapy; L40.52 Psoriatic arthritis mutilans; H20.9 Unspecified iridocyclitis
CPT/HCPCS: 36415; 80076; 82565; 85025

== ENCOUNTER 2024-02-10 10:43 | Outpatient (CLI) | payer MEDICARE, SELFPAY ==
[2024-02-10 19:28] LABS: PSA, Diagnostic 9.5 ng/mL (<=6.5)
== END 2024-02-10 10:44 | disposition home or self-care (01) ==
LOC: LBO 10:45
PROVIDERS: PCP Family Medicine; Visit Provider Urology
DX: R97.20 Elevated prostate specific antigen [PSA] (principal)
CPT/HCPCS: 36415; 84153

== ENCOUNTER → 2024-02-17 15:03 | Outpatient (BNVA) | payer MEDICARE, SELFPAY | PROVIDERS: PCP Family Medicine; Visit Provider Urology | DX: R35.0 Frequency of micturition (principal); R97.20 Elevated prostate specific antigen [PSA] | CPT/HCPCS: 99213 ==

== ENCOUNTER 2024-05-01 12:32 | Outpatient (CLI) | payer MEDICARE, SELFPAY ==
--- NOTE | 2024-05-01 13:49 | DI.RAD_ITS ---
Exam(s) XR KNEE LT 3V AP,LAT,MARLI EXAM: XR KNEE LT 3V AP,LAT,MARLI CLINICAL HISTORY: M25.562 Pain in left knee. TECHNIQUE: 2D digital imaging was performed. Three views. COMPARISON: No exams were available for comparison FINDINGS: BONES: No acute fracture is present. No bony destructive lesion is seen. Patellar enthesophytes. Small enthesophyte at tibial tubercle. JOINTS: The knee is normally aligned. No joint effusion is seen. Mild to moderate medial femoral ti bial joint space narrowing and periarticular spurring. SOFT TISSUE: Normal. IMPRESSION: [id number] degenerative changes of the medial femoral tibial joint. DATA REPOSITORY: RADIATION DOSE DELIVERED:
== END 2024-05-01 12:52 ==
LOC: DI 12:33
PROVIDERS: PCP Family Medicine; Visit Provider Family Medicine
DX: M17.12 Unilateral primary osteoarthritis, left knee (principal)
CPT/HCPCS: 73562

== ENCOUNTER 2024-06-01 13:48 | Outpatient (CLI) | payer MEDICARE, SELFPAY ==
--- NOTE | 2024-06-01 09:00 | DI.RAD_ITS ---
Exam(s) XR LUMBAR SPINE AP, LAT EXAM: XR LUMBAR SPINE AP, LAT CLINICAL HISTORY: BILAT HIP PAIN. TECHNIQUE: 2D digital imaging was performed. COMPARISON: CR XR LUMBAR SPINE COMPLETE from 12/26/2020 FINDINGS: 3 views No evidence of fracture, listhesis, nor pars interarticularis defects. All of the disc spaces in the lumbar spine continue to exhibit normal height and there is no scoliosis. Some degenerative change in the L5-S1 facet joints again noted as well as in sacroiliac joints. Benign bone island in left si de of the pelvis is unchanged 202. Vascular calcification is noted in the lower abdominal aorta and iliac arteries. IMPRESSION: As above but no acute osseous findings nor significant change compared to images of 12/26/2020. If clinically indicated follow-up MRI can be performed. DATA REPOSITORY: RADIATION DOSE DELIVERED:
--- NOTE | 2024-06-01 09:04 | DI.RAD_ITS ---
Exam(s) XR HIP PELVIS ADULT BL EXAM: XR HIP PELVIS ADULT BL CLINICAL HISTORY: BILAT HIP PAIN. TECHNIQUE: 2D digital imaging was performed. COMPARISON: CR XR HIP PELVIS ADULT BL from 03/13/2021 FINDINGS: 3 views No evidence of pelvic nor hip fracture. No hip joint space narrowing. Additional frog-lateral views of both hips reveals small osteophyte off the right femoral head. On the opposite-left side there i s a small degenerative subarticular cyst off the superolateral aspect of the acetabulum which is unch anged. Calcification both femoral arteries is evident. Benign bone island in the left iliac bone is unchanged from 2021. IMPRESSION: Mild degenerative changes in the hips as described above. DATA REPOSITORY: RADIATION DOSE DELIVERED:
== END 2024-06-01 13:49 | disposition home or self-care (01) ==
LOC: DIORS 13:49
PROVIDERS: PCP Family Medicine; Referring Provider Family Medicine; Visit Provider Student in an Organized Health Care Education/Training Program
DX: M25.851 Other specified joint disorders, right hip; M25.852 Other specified joint disorders, left hip; M23.92 Unspecified internal derangement of left knee; M54.16 Radiculopathy, lumbar region; M48.061 Spinal stenosis, lumbar region without neurogenic claudication; M70.61 Trochanteric bursitis, right hip; M70.62 Trochanteric bursitis, left hip
CPT/HCPCS: 20610; 73521; 99214; J1010; 72100

== ENCOUNTER 2024-06-20 02:10 | Outpatient (CLI) | payer MEDICARE, SELFPAY ==
--- NOTE | 2024-06-20 07:30 | DI.MRI_ITS ---
Exam(s) MR LUMBAR SPINE WO EXAM: MR LUMBAR SPINE WO CLINICAL HISTORY: PAIN,LUMBAR SPINAL STENOSIS,LUMBAR RADICULOPATHY,M48.061,M54.16. TECHNIQUE: Multiplanar multisequence MRI of the Lumbar spine was performed. COMPARISON: CT CT ABDOMEN PELVIS W CONTRAST from 07/19/2020 CR XR LUMBAR SPINE AP, LAT from 06/01/2024 FINDINGS: Bones: The last intervertebral disc space is designated the L5/S1 level for the numbering purpose of this ex amination. The vertebral body heights are well maintained. Alignment: Unremarkable. The marrow signal characteristics are unremarkable. Cord: The conus tip ends at the T12 level. It is of normal size and signal intensity. T12-L1: No focal disc herniation is present. No central spinal canal stenosis.No neural foraminal st enosis. L1-2: No focal disc herniation is present. No central spinal canal stenosis.No neural foraminal sten osis. L2-3: No focal disc herniation is present. No central spinal canal stenosis.No neural foraminal rosetta nosis. L3-4: No focal disc herniation is present. No central spinal canal stenosis.No neural foraminal rosetta nosis. L4-5: No focal disc herniation is present. Mild facet degenerative changes. No central spinal canal stenosis.No neural foraminal stenosis. L5-S1: No focal disc herniation is present. Mild facet degenerative changes. No central spinal jada l stenosis.No neural foraminal stenosis. The visualized SI joints and sacrum are unremarkable. Soft tissues: The paraspinal soft tissues are unremarkable. There are multiple renal cysts, includi ng a large cyst at the upper pole of the right kidney. IMPRESSION: Intervertebral discs are intact throughout without evidence of herniation. No significant spinal rosetta nosis or neuroforaminal narrowing. DATA REPOSITORY:
== END 2024-06-20 02:30 ==
LOC: DI 02:10
PROVIDERS: PCP Family Medicine; Visit Provider Student in an Organized Health Care Education/Training Program
DX: M54.16 Radiculopathy, lumbar region (principal); M48.061 Spinal stenosis, lumbar region without neurogenic claudication
CPT/HCPCS: 72148

== ENCOUNTER 2024-07-21 00:06 | Outpatient (CLI) | payer MEDICARE, SELFPAY ==
--- NOTE | 2024-07-21 07:30 | DI.MRI_ITS ---
Exam(s) MR LOWER JOINT LT WO EXAM: MR LOWER JOINT LT WO CLINICAL HISTORY: LEFT KNEE PAIN,INTERNAL DERANGEMENT,M23.92 TECHNIQUE: Multiplanar multisequence MRI of the knee was performed. COMPARISON: No exams were available for comparison FINDINGS: EFFUSION: There is a small-moderate size knee joint effusion. There is no Barcenas cyst. No obvious lo ose intra-articular bodies. MARROW:There is no evidence of fracture, bone contusion, nor osteochondral defects.. There are no si gnificant osseous lesions. PATELLOFEMORAL COMPARTMENT: The quadriceps tendon is intact. The patellar ligament is intact. There is no significant thinning of the retropatellar cartilage. No evidence of fissure nor signific ant chondral defect. No osteochondral defect at this level.There is no intraosseous signal to sugges t recent patellar dislocation. There are no patellar retinacular tears. CRUCIATE LIGAMENTS: The anterior cruciate ligament is intact.The posterior cruciate ligament is intac t. MEDIAL COMPARTMENT/MEDIAL MENISCUS: There is a tear in the posterior horn of the medial meniscus 7 mm in from the root attachment site. Remainder of the body as well as the anterior horn do not appear torn although there is some mild extrusion of the anterior horn evident. There issignificant articular cartilage loss over the main weight-bearing surface of the medial femor al condyle. There is small focus of subarticular edema in the medial femoral condyle. No evidence o f defined osteochondral defect. There are tiny marginal osteophytes. MEDIAL COLLATERAL LIGAMENT: Mild increased signal. No high-grade tear. LATERAL COMPARTMENT/LATERAL MENISCUS: There is no evidence of lateral meniscal tear.There are no gertrudis dral defects, osteochondral defects, subarticular marrow edema, nor osteophytes evident. ILIOTIBIAL BAND: Intact LATERAL COLLATERAL LIGAMENT COMPLEX: The fibular collateral ligament is intact. The biceps femoris t endon is intact.Popliteus muscle and tendon are intact. IMPRESSION: 1. There is a tear in the posterior horn of the medial meniscus as described above. This is at the j unction of the mid and medial 3rd. There is mild extrusion of the anterior horn but no distinct tear of the anterior horn evident. 2. There is prominent high-grade articular cartilage loss over the main weight-bearing surface of the medial femoral condyle. There is single small focus of subarticular edema in the medial condyle. N o signal abnormality in the tibial plateau. 3. The lateral and patellofemoral compartments appear unremarkable. 4. There are no cruciate nor collateral ligament tears Small-moderate size joint effusion. No Barcenas cyst. No obvious loose bodies DATA REPOSITORY:
== END 2024-07-21 00:26 ==
LOC: DI 00:06
PROVIDERS: PCP Family Medicine; Visit Provider Student in an Organized Health Care Education/Training Program
DX: M23.222 Derangement of posterior horn of medial meniscus due to old tear or injury, left knee (principal)
CPT/HCPCS: 73721

== ENCOUNTER → 2024-07-24 13:23 | Outpatient (BNVA) | payer MEDICARE, SELFPAY | PROVIDERS: PCP Family Medicine; Referring Provider Family Medicine; Visit Provider Student in an Organized Health Care Education/Training Program | DX: M70.61 Trochanteric bursitis, right hip (principal); M70.62 Trochanteric bursitis, left hip; M23.92 Unspecified internal derangement of left knee; I73.9 Peripheral vascular disease, unspecified | CPT/HCPCS: 99214 ==

== ENCOUNTER 2024-09-12 03:01 | Outpatient (CLI) | payer MEDICARE, SELFPAY ==
[2024-09-13 09:39] LABS: PSA, Diagnostic 9.3 ng/mL (<=6.5)
== END 2024-09-12 03:02 | disposition home or self-care (01) ==
LOC: LBO 03:01
PROVIDERS: PCP Family Medicine; Visit Provider Urology
DX: R97.20 Elevated prostate specific antigen [PSA] (principal)
CPT/HCPCS: 36415; 84153

== ENCOUNTER → 2024-09-19 14:08 | Outpatient (BNVA) | payer MEDICARE, SELFPAY | PROVIDERS: PCP Family Medicine; Visit Provider Urology | DX: R97.20 Elevated prostate specific antigen [PSA] (principal) | CPT/HCPCS: 99214 ==

== ENCOUNTER 2024-10-17 16:57 | Outpatient (REF) | payer MEDICARE, SELFPAY ==
[2024-10-17 19:51] LABS: HCT 41.8 % (40.0-50.0); HGB 13.6 g/dL (13.5-17.5); MCH 30.1 pg (27.0-33.0); MCHC 32.5 % (32.0-36.0); MCV 93 fL (80-95); MPV 12.4 fL (8.0-11.0); Platelet Count 237 10^3/uL (130-400); RBC 4.52 10^6/uL (4.36-5.78); RDW 13.6 % (11.8-14.1); RDW-SD 46.5 fL; WBC 10.14 10^3/uL (4.4-10.8)
[2024-10-17 20:36] LABS: Hemoglobin A1C 6.4 % (<5.7)
[2024-10-17 20:41] LABS: ALT 21 U/L (16-63); AST 16 U/L (15-37); Albumin 3.4 g/dL (3.4-5.0); Alkaline Phosphatase 100 U/L (46-116); Anion Gap 8.3 mmol/L (3-11); BUN 26 mg/dL (7-18); Bilirubin, Total 0.2 mg/dL (0.2-1.0); CO2 25.7 mmol/L (21.0-32.0); Calcium 9.3 mg/dL (8.5-10.1); Chloride 105 mmol/L (98-107); Estimated GFR 90.18 (mL/min/1.73m2); Glucose 155 mg/dL (74-106); Potassium 4.2 mmol/L (3.5-5.1); Sodium 139 mmol/L (136-145); Total Protein 6.8 g/dL (6.4-8.2)
== END 2024-10-17 16:58 | disposition home or self-care (01) ==
LOC: NCHCN 16:57
PROVIDERS: PCP Family Medicine; Visit Provider Family Medicine
DX: E11.9 Type 2 diabetes mellitus without complications (principal); I10 Essential (primary) hypertension
CPT/HCPCS: 80053; 85027; 83036

== ENCOUNTER 2024-12-01 13:50 | Outpatient (CLI) | payer MEDICARE, SELFPAY ==
[2024-12-01 13:47] LABS: Estimated GFR 70.88 (mL/min/1.73m2)
== END 2024-12-01 13:51 | disposition home or self-care (01) ==
LOC: LBO 13:50
PROVIDERS: PCP Family Medicine; Visit Provider Family Medicine
DX: Z01.810 Encounter for preprocedural cardiovascular examination (principal); Z13.6 Encounter for screening for cardiovascular disorders
CPT/HCPCS: 36415; 82565

== ENCOUNTER 2024-12-14 04:35 | Outpatient (CLI) | payer MEDICARE, SELFPAY ==
--- NOTE | 2024-12-14 | DI.CT_ITS ---
Exam(s) CT ABD AORTA CTA W RUNOFF EXAM: CT ABD AORTA CTA W RUNOFF CLINICAL HISTORY: CLAUDICATION, PERIPHERAL VASCULAR DISEASE, I73.9. TECHNIQUE: Imaging Protocol: Axial computed tomography images with coronal and sagittal reformatted images were created and reviewed CONTRAST MATERIAL: Intravenous: Omnipaque 350 Contrast volume:150cc Oral: None COMPARISON: No exams were available for comparison FINDINGS: ARTERIOGRAM: The abdominal aorta is peripherally calcified but not enlarged. There is also calcification of the iliac arteries. There is tight focal stenosis at the origin of the right common iliac artery. There is no tight stenosis in the left common iliac artery. There is some calcified plaque in the more distal common and external iliac arteries but without tight focal stenosis ease. There are no significant aneurysms in the internal iliac arteries. There is some calcified plaque but no critical stenosis in the common femoral arteries. Both SFA arteries are patent without significant stenosis and both SFA arteries are continuous with patent bilateral popliteal arteries. There is no stenosis in the popliteal arteries and there are no popliteal artery aneurysms. The tibioperoneal trunks are patent bilaterally and there is three- vessel runoff in both calves.. Both anterior tibial arteries are continuous with dorsalis pedis segments in the foot and both posterior tibial arteries extend to and beyond the medial malleolus to the plantar vessels. Both peroneal arteries are opacified to the distal calf level. 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 ABDOMEN: Visualized lung bases are clear. There are no pleural effusions. There is no ascites. LIVER: Liver is hypodense implying steatosis. Liver is also moderately enlarged. There are no discrete focal hepatic lesions. There are no dilated intrahepatic ducts. GALLBLADDER/BILIARY: The gallbladder surgically absent. CBD is not dilated. PANCREAS: No evidence of pancreatic mass nor dilatation of the pancreatic duct. There few tiny pancreatic parenchymal calcifications noted. SPLEEN: Spleen is not enlarged. There are no intrasplenic lesions. ADRENALS: There are no significant adrenal masses. KIDNEYS: There are multiple benign cysts in both kidneys. The largest cyst in left kidney measures 9 by 7 by 10 cm and exhibits a Bosniak type 2 configuration. All the other multiple cysts in both kidneys are smaller and simple in appearance. There no 4 solid malignant-appearing renal masses. No ca lculi nor hydronephrosis. No solid renal masses. ABDOMINAL AORTA: Peripherally calcified but not aneurysmal. There is no significant narrowing at the origin of the celiac and superior mesenteric arteries nor in the renal arteries. The inferior mesenteric artery is also patent. The main finding is the critical stenosis at the origin of the right co mmon carotid artery. LYMPH NODES: There is no retroperitoneal nor para-aortic adenopathy. No obvious mesenteric masses. ABDOMINAL WALL: No evidence of significant anterior abdominal wall hernia. GI: There is no evidence of bowel obstruction, free air, nor abscess.There are no ischemic appearing bowel loops. PELVIS: LYMPH NODES: There is no intrapelvic nor inguinal adenopathy. GI: No evidence of appendicitis.There is sigmoid diverticulosis. There is no evidence of obvious acute diverticulitis. URINARY BLADDER: Urinary bladder wall is diffusely thickened. REPRODUCTIVE: Prostate gland is grossly enlarged measuring 7 cm wide. This indents the bladder base. There is no obturator adenopathy. No adenopathy along the internal iliac vessels. OSSEOUS: No fractures nor significant osseous lesions. IMPRESSION: 1. 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 Recommend rapid referral to vascular surgery recommended. This is the main inflow lesion. There is significantly less atherosclerotic narrowing of the left common iliac artery. There is no significant vascular stenosis below the inguinal ligaments and there is three-vessel runoff in both calves. 2. Grossly enlarged prostate gland. Diffuse thickening of the urinary bladder wall which is probably related to the enlarged prostate gland. The bladder does not appear to be overly distended at this time. Appropriate prostate testing recommended 3. Multiple benign cysts in both kidneys. These do not require further imaging workup. There is, however, 1 large cyst in the left kidney measuring 9 x 7 x 10 cm and exhibiting thin internal septae. Bosniak type 2 4. 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 5. Rapid vascular surgery consultation is recommended. RADIATION DOSE DELIVERED: 1,128.65mGy.cm Total DLP DATA REPOSITORY: All CT scans at this facility are submitted to the National Radiology Data Registry (NRDR) Dose Index Registry (DIR) with the [employer] (ACR). RADIATION OPTIMIZATION: All CT scans at this facility use at least one of these dose optimization techniques: automated exposure control; mA and/or kV adjustment per patient size (includes targeted exams where dose is matched to clinical indication); or iterative reconstruction.
[2024-12-14] MEDS: Normal Saline - Diluent 50 ML VIAL IJ (15:26)
[2024-12-14] MEDS: Omnipaque 350 MG/ML 100 ML BTL IJ (15:27)
[2024-12-14] MEDS: Normal Saline Flush 10 ML SYR IVP (15:28)
[2024-12-14] MEDS: Omnipaque 350 MG/ML 50 ML BTL IJ (15:28)
== END 2024-12-14 04:55 ==
LOC: DI 04:35
PROVIDERS: PCP Family Medicine; Visit Provider Family Medicine
DX: I73.89 Other specified peripheral vascular diseases (principal); N28.1 Cyst of kidney, acquired
CPT/HCPCS: 75635; J3490; Q9967